=== PATIENT | female | born 1945 | race Caucasian/White ===

== ENCOUNTER 2017-04-26 14:53 | Emergency (ER) | payer MEDICARE ==
[~2017-04-26] VITALS: Ht 170.2 cm; Wt 95.3 kg
[~2017-04-26 14:53] MED LIST: ADULT ASPIRIN81 MG; AMLODIPINE BESY10 MG PO; AMLODIPINE BESYL5 MG PO; ANTIVERT25 MG; ASPIR 8181 MG PO; CRESTOR10 MG PO; DIGOXIN125 MCG PO; LASIX20 MG PO; MIRALAX17 GM PO; NEURONTIN100 MG PO; SENOKOT-S TABL1 EACH PO; SIMVASTATIN20 MG PO; TOPROL XL25 MG PO; TYLENOL EXTRA500 MG PO; WARFARIN SODIUM3 MG PO; WARFARIN SODIUM5 MG PO; Z.0.CRESTOR10 MG; Z.0.HYDROCHLOROTHIA2; Z.0.LISINOPRIL10 MG; Z.0.METOPROLOL SUCC2
--- OUTSIDE RECORDS SUMMARY | 2017-04-26 14:55 | XMS REPORT | Clinical Summary ---
Author Author [facility] Address Unknown Phone Unavailable Care Team Providers Care Bath Attendant Name Role Phone Ami Dumont MD PCP Allergies Active Allergy Reactions Severity Noted Date Comments Hydralazine Hives 02/02/2017 Ibuprofen Hives 02/02/2017 Current Medications Prescription Sig. Disp. Refills Start End Date Status Date gabapentin (NEURONTIN) Take 100 mg by mouth 2 Active 100 mg capsule (two) times a day. QUEtiapine (SEROquel) 25 Take 12.5 mg by mouth Active MG tablet nightly. midodrine (PROAMATINE) 5 Take 5 mg by mouth 3 Active MG tablet (three) times a day as needed. docusate sodium (COLACE) Take 100 mg by mouth 2 Active 100 MG capsule (two) times a day as needed for constipation. atorvastatin (LIPITOR) 40 Take 40 mg by mouth Active MG tablet daily. warfarin (COUMADIN) 6 MG Take 6 mg by mouth daily. Active tablet Wednesday and warfarin (COUMADIN) 5 MG Take 5 mg by mouth daily. Active tablet Every Wed, Wed, Wed, Sat, Sun torsemide (DEMADEX) 20 MG Take 40 mg by mouth Active tablet daily. Active Problems Not on file Encounters Date Type Specialty Care Team Description 02/02/2017 Hospital Radiology Onur Kaufman Chronic kidney disease, Encounter Celio Albarado MD stage III (moderate); Fitting and adjustment of vascular catheter 02/02/2017 Ancillary Access Onur Kaufman Chronic kidney disease, Orders Celio Albarado MD stage III (moderate); Fitting and adjustment of vascular catheter 01/29/2017 Telephone Radiology Mao Bhagat 01/28/2017 Transcribe Access Onur Kaufman Chronic kidney disease , Carmen Pickens Jr., MD stage III (moderate) (Primary Dx); Fitting and adjustment of vascular catheter after 04/25/2016 Family History Medical History Relation Name Comments Diabetes Brother Heart attack Brother Heart attack Father Cancer Sister Diabetes Sister Relation Name Status Comments Brother Father Sister Social History Tobacco Use Types Packs/Day Years Used Date Never Smoker Smokeless Tobacco: Never Used Alcohol Use Drinks/Week oz/Week Comments No Sex Assigned at Date Recorded Not on file Last Filed Vital Signs Vital Sign Reading Time Taken Blood Pressure 138/68 02/02/2017 10:17 AM LABORATORY TECHNICAL SPECIALIST Pulse 100 02/02/2017 10:21 AM LABORATORY TECHNICAL SPECIALIST Temperature 36.3 C (97.3 F) 02/02/2017 10:21 AM LABORATORY TECHNICAL SPECIALIST Respiratory Rate 17 02/02/2017 9:32 AM LABORATORY TECHNICAL SPECIALIST Oxygen Saturation 94% 02/02/2017 10:21 AM LABORATORY TECHNICAL SPECIALIST Inhaled Oxygen - - Concentration Weight 96.6 kg (213 lb) 02/02/2017 7:29 AM LABORATORY TECHNICAL SPECIALIST Height 167.6 cm (5' 6") 02/02/2017 7:29 AM LABORATORY TECHNICAL SPECIALIST Body Mass Index 34.38 02/02/2017 7:29 AM LABORATORY TECHNICAL SPECIALIST Plan of Treatment Health Maintenance Due Date Last Done Comments COLONOSCOPY 1996 ZOSTER VACCINE 2006 PNEUMOCOCCAL 06/07/2011 POLYSACCHARIDE VACCINE AGE 65 AND OVER PNEUMOCOCCAL-13 06/07/2011 INFLUENZA VACCINE 09/08/2016 MAMMOGRAM 10/22/2017 10/23/2015, 10/01/2015, 09/27/2014, Additional history exists Results * IR Endovascular Consult (02/02/2017 9:44 AM) Specimen Performing Laboratory [facility] [address] [place] [address] Narrative Examination:IR ENDOVASCULAR CONSULT Clinical history:"N18.3 Chronic kidney diseasestage 3 (moderate), Z45.2 Encounter for adjustment and management of vascular access device, N18.3 Z45.2" Comparison:There are no prior studies for comparison. Anesthesia:Lidocaine solution was injected into the involved tissues. Conscious sedation: Conscious sedation medications were not administered. Technique:The patient was prepared using sterile technique after signed, informed consent was obtained. Maximal sterile barrier technique was implemented.The suture securing the catheter to the skin surface was severed.The cuff of the indwelling left internal jugular tunneled central venous catheter was bluntly dissected from the soft tissues.The catheter was then removed without incident. Hemostasis was established at the venotomy/catheter exit site by applying direct pressure. Estimated blood loss:Less than 1 cc. Complications:None. Specimens removed:Not applicable. Assistants:None. IMPRESSION:The patient's indwelling left internal jugular tunneled central venous catheter was removed without incident as described above. Thank you for allowing us to participate in the care of your patient. [id number] Procedure Note Hm Interface, Radiology Results Incoming - 02/02/2017 11:38 AM LABORATORY TECHNICAL SPECIALIST Examination: IR ENDOVASCULAR CONSULT Clinical history: "N18.3 Chronic kidney disease stage 3 (moderate), Z45.2 Encounter for adjustment and management of vascular access device, N18.3 Z45.2 " Comparison: There are no prior studies for comparison. Anesthesia: Lidocaine solution was injected into the involved tissues. Conscious sedation: Conscious sedation medications were not administered. Technique: The patient was prepared using sterile technique after signed, informed consent was obtained. Maximal sterile barrier technique was implemented. The suture securing the catheter to the skin surface was severed. The cuff of the indwelling left internal jugular tunneled central venous catheter was bluntly dissected from the soft tissues. The catheter was then removed without incident. Hemostasis was established at the venotomy/catheter exit site by applying direct pressure. Estimated blood loss: Less than 1 cc. Complications: None. Specimens removed: Not applicable. Assistants: None. IMPRESSION: The patient's indwelling left internal jugular tunneled central venous catheter was removed without incident as described above. Thank you for allowing us to participate in the care of your patient. [id number] * Estimated GFR (02/02/2017 8:06 AM) Component Value Ref Range GFR Non Af Amer 44 (A) mL/min/1.73 m2 GFR Af Amer 54 (A) mL/min/1.73 m2 Comment: Chronic kidney disease: <60 mL/min/1.73m2 Kidney failure: <15 mL/min/1.73m2 The estimated GFR is calculated from the IDMS-traceable Modification of Diet in Renal Disease Equation. The accuracy of the calculation is poor when the creatinine is normal. Calculated values >90 mL/min/1.73m2 are not reported. This equation has not been validated in children (<18 years), women, the elderly (>70 years), or ethnic groups other than Caucasians and Americans. Specimen Performing Laboratory Plasma specimen [facility] DEPARTMENT OF PATHOLOGY AND GENOMIC MEDICINE [address] [place] [address] * Partial thromboplastin time, activated (02/02/2017 8:06 AM) Component Value Ref Range PTT 26.8 23.0 - 36.0 sec Comment: PTT therapeutic range for unfractionated heparin is 61.0-112.0 seconds which corresponds to Anti-Xa 0.3-0.7 U/ml. Note: Change in Panic Value The PTT Panic Value is changing from 110 sec. to 100 sec. due to new instrumentation and reagents. Correlation studies have been performed to validate this result. Specimen Performing Laboratory Blood [facility] DEPARTMENT OF PATHOLOGY AND GENOMIC MEDICINE [address] [place] [address] * Prothrombin time with INR (02/02/2017 8:06 AM) Component Value Ref Range Prothrombin time 12.6 12.0 - 15.0 sec INR 0.93 0.92 - 1.12 Comment: For patients on anticoagulant therapy, reference ranges below: Indication: INR Value Treatment of Venous Thrombosis, 2.0-3.0 pulmonary emboli, or prophylaxis of a venous thrombosis, or systemic emboli. High dose, high risk patients 3.0-4.5 with mechanical valves. NOTE: INR values over 3.0 are sometimes associated with gastrointestinal hemorrhage, especially values over 4.0. Specimen Performing Laboratory Blood [facility] DEPARTMENT OF PATHOLOGY AND GENOMIC MEDICINE [address] [place] [address] * CBC with platelet and differential (02/02/2017 8:06 AM) Component Value Ref Range WBC 6.6 4.2 - 11.0 k/uL RBC 4.30 4.04 - 5.86 m/uL HGB 12.6 11.5 - 15.3 g/dL HCT 40.6 34.0 - 45.0 % MCV 94.4 80.0 - 98.0 fL MCH 29.3 27.0 - 34.0 pg MCHC 31.0 (L) 31.5 - 36.5 g/dL RDW - SD 50.8 37.0 - 51.0 fL MPV 9.7 7.4 - 10.4 fL Platelet count 213 150 - 400 k/uL Nucleated RBC 0.00 /100 WBC Neutrophils 56.7 36.0 - 66.0 % Lymphocytes 32.8 24.0 - 44.0 % Monocytes 5.9 0.0 - 6.0 % Eosinophils 3.2 0.0 - 6.0 % Basophils 0.9 0.0 - 1.2 % Immature granulocytes 0.5 0.0 - 1.0 % Specimen Performing Laboratory Blood [facility] DEPARTMENT OF PATHOLOGY AND GENOMIC MEDICINE [address] [place] [address] * Basic metabolic panel (02/02/2017 8:06 AM) Component Value Ref Range Sodium 140 135 - 150 mEq/L Potassium 3.8 3.5 - 5.0 mEq/L Chloride 101 100 - 109 mEq/L CO2 30 24 - 32 mmol/L Anion gap 9 7 - 15 mEq/L Comment: Starting from May , anion gap calculation no longer incorporates potassium. Please note the change. BUN 19 (H) 7 - 18 mg/dL Creatinine 1.2 0.8 - 1.5 mg/dL Glucose 109 (H) 65 - 100 mg/dL Calcium 9.3 8.6 - 10.7 mg/dL Specimen Performing Laboratory Plasma specimen [facility] DEPARTMENT OF PATHOLOGY AND GENOMIC MEDICINE [address] [place] [address] after 04/25/2016 Insurance Payer Benefit Subscriber ID Type Phone Address Plan / Group AETNA AETNA xxxxxxxx HMO HMO,POS,EP O, MC/EC AETNA MEDICARE AETNA xxxxxxxx HMO MEDICARE HMO/PPO [facility]
[2017-04-26 16:57] LABS: BASOPHILS # (AUTO) 0.1 (0.0-0.1); BASOPHILS % 0.5 % (0.0-1.0); EOSINOPHILS # (AUTO) 0.2 (0.0-0.4); EOSINOPHILS % 2.2 % (0.0-6.0); HEMATOCRIT 35.3 % (34.2-44.1); HEMOGLOBIN 11.9 g/dL (12.0-16.0); LYMPHOCYTES # (AUTO) 2.9 (1.0-3.2); LYMPHOCYTES % 30.1 % (18.0-39.1); MEAN CORPUSCULAR HEMOGLOBIN 31.3 pg (28-32); MEAN CORPUSCULAR HGB CONC 33.7 g/dL (31-35); MEAN CORPUSCULAR VOLUME 92.9 fL (81-99); MONOCYTES # (AUTO) 0.6 (0.2-0.8); MONOCYTES % 5.9 % (4.4-11.3); NEUTROPHILS # (AUTO) 5.9 (2.1-6.9); NEUTROPHILS % 61.1 % (38.7-80.0); PLATELET COUNT 261 x10e3/uL (140-360)
[2017-04-26 17:05] LABS: INR 2.64; PROTHROMBIN TIME 26.5 seconds (11.9-14.5)
[2017-04-26 17:06] LABS: PARTIAL THROMBOPLASTIN TIME 41.4 seconds (23.8-35.5)
[2017-04-26 17:14] LABS: ALBUMIN 3.9 g/dL (3.5-5.0); ANION GAP 15.5 mmol/L (8-16); CREATININE, SERUM 1.31 mg/dL (0.57-1.11); POTASSIUM 4.5 mmol/L (3.5-5.1)
[2017-04-26 17:23] LABS: CREATINE KINASE MB 0.6 ng/mL (0-5.0)
[2017-04-26 17:41] LABS: BILIRUBIN,URINE NEGATIVE (NEGATIVE); CLARITY,URINE CLEAR (CLEAR); COLOR,URINE YELLOW (YELLOW); KETONES,URINE NEGATIVE (NEGATIVE); LEUKOCYTE ESTERASE ,URINE TRACE (NEGATIVE); NITRITE,URINE NEGATIVE (NEGATIVE); PROTEIN,URINE DIPSTICK NEGATIVE (NEGATIVE); URINE UROBILINOGEN 0.2 mg/dL (0.2 - 1)
[2017-04-26 17:53] LABS: BACTERIA,URINE RARE /HPF; EPITHELIAL CELLS,URINE FEW /LPF; MUCUS,URINE RARE (RARE); RBC,URINE 0-5 /HPF (0-5)
[2017-04-26] MEDS ORDERED: DIATRIZOATE MEGL/DIATRIZOA SOD 30 ML BTL PO ONE (19:31)
[2017-04-26] MEDS ORDERED: GABAPENTIN100 MG PO (20:47)
[2017-04-26] MEDS ORDERED: VITAMIN D31000 UNI1 PO (20:47)
[2017-04-26] MEDS ORDERED: ATORVASTATIN CA20 MG PO (20:47)
[2017-04-26] MEDS ORDERED: WARFARIN SODIUM3 MG PO (20:48)
[2017-04-26] MEDS ORDERED: METOPROLOL TART25 MG PO (20:49)
[2017-04-26] MEDS ORDERED: TORSEMIDE10 MG PO (20:50)
[2017-04-26] MEDS ORDERED: QUETIAPINE FUMA25 MG PO (20:50)
[2017-04-26] MEDS ORDERED: BISACODYL5 MG PO (20:51)
--- NOTE | 2017-04-26 21:03 | Diagnostic Imaging Report ---
EXAM: CT Abdomen and Pelvis WITHOUT contrast INDICATION: COMPARISON: 08/25/2016 CT TECHNIQUE: Abdomen and Pelvis was scanned utilizing a multidetector helical scanner without the use of IV contrast. Coronal and sagittal reformations were obtained. IV CONTRAST: None COMPLICATIONS: None RADIATION DOSE: Total DLP: 876 mGy*cm Estimated effective dose: (DLP x 0.015 x size factor) mSv CTDIvol has been reviewed. It is below the limits set by the Radiation Protocol Committee (RPC). FINDINGS: Abdomen: Lung Bases: Bronchial wall thickening and scattered nodular densities in the lung bases, nonspecific given respiratory motion. Vascular calcifications, sternotomy changes, mitral annular calcifications, and probable aortic valve postsurgical changes partially visualized. Solid Organs: Possible small adenoma right adrenal gland. Otherwise, nonenhanced images of liver, adrenals, spleen, and pancreas are unremarkable. No hydronephrosis or renal calculi present. No ureteral calculi. Upper GI Tract: Small hiatal hernia. No small bowel obstructive changes. Vascularity: Moderate aortic vascular calcifications. No aneurysm. Lymph Nodes: No suspicious mesenteric or aortocaval adenopathy. Other: None. Pelvis: Bladder: Unremarkable. Other: Uterus absent. Colon: Scattered diverticula with no CT evidence of diverticulitis. Moderate stool, particularly ascending. No inflammatory changes. Bones: Degenerative changes spine. IMPRESSION: 1. No hydronephrosis, renal, or ureteral calculi. 2. Diverticulosis. 3. Moderate colonic stool. 4. Small right adrenal adenoma. 5. Nodularity in the lung bases, poorly evaluated due to respiratory motion. Nonemergent outpatient dedicated chest CT recommended. Signed by: Dr. Kevin Robins MD on 04/26/2017 8:59 PM
[2017-04-26 21:39] VITALS: BP 174/80
== END 2017-04-26 21:50 | disposition home or self-care (01) ==
LOC: ER 14:53
DX: R10.11 Right upper quadrant pain (principal); R10.31 Right lower quadrant pain; K59.00 Constipation, unspecified
CPT/HCPCS: 36415; 74176; 80053; 81001; 82150; 82550; 82553; 83690; 83880; 84484; 85025; 85610; 85730; 93005; 99283

== ENCOUNTER → 2018-12-09 | Day surgery (SDC) | payer MEDICARE ==
[2018-12-08 11:27] LABS: BASOPHILS # (AUTO) 0.1 (0.0-0.1); BASOPHILS % 0.7 % (0.0-1.0); EOSINOPHILS # (AUTO) 0.2 (0.0-0.4); EOSINOPHILS % 2.6 % (0.0-6.0); HEMATOCRIT 39.8 % (34.2-44.1); HEMOGLOBIN 12.8 g/dL (12.0-16.0); LYMPHOCYTES # (AUTO) 2.4 (1.0-3.2); LYMPHOCYTES % 27.2 % (18.0-39.1); MEAN CORPUSCULAR HEMOGLOBIN 30.3 pg (28-32); MEAN CORPUSCULAR HGB CONC 32.2 g/dL (31-35); MEAN CORPUSCULAR VOLUME 94.3 fL (81-99); MONOCYTES # (AUTO) 0.5 (0.2-0.8); MONOCYTES % 5.2 % (4.4-11.3); NEUTROPHILS # (AUTO) 5.7 (2.1-6.9); PLATELET COUNT 281 x10e3/uL (140-360); RED BLOOD COUNT 4.22 x10e6/uL (3.6-5.1); RED CELL DISTRIBUTION WIDTH 14.6 % (11.7-14.4)
[2018-12-08 11:45] LABS: ALBUMIN 3.9 g/dL (3.5-5.0); ANION GAP 19.4 mmol/L (8-16); CALCIUM 9.8 mg/dL (8.4-10.2); CREATININE, SERUM 1.31 mg/dL (0.57-1.11); POTASSIUM 4.4 mmol/L (3.5-5.1)
[~2018-12-09] VITALS: Ht 170.2 cm; Wt 105.7 kg
[2018-12-09] VITALS (7 sets, daily range): BP systolic 110–129; BP diastolic 55–79
[~2018-12-09] MED LIST changes: +ALPRAZOLAM 0.5 MG TAB ONE; +ATORVASTATIN CA20 MG PO; +BISACODYL5 MG PO; +DIPHENHYDRAMINE HCL 25 MG CAP ONE; +FENTANYL CITRATE/PF 100MCG/2 ML INJ ONE; +GABAPENTIN100 MG PO; +HEPARIN SOD/SOD CHLORIDE 2,000 ML ONE; +IOPAMIDOL 370 MG/ML 200 ML INFUS..BTL INJ ONE; +LIDOCAINE HCL 2% LOCAL 20 ML VIAL ONE; +METOPROLOL SUCC25 MG PO; +METOPROLOL TART25 MG PO; +METOPROLOL TART50 MG PO; +MIDAZOLAM HCL 2 MG/2 ML VIAL ONE; +QUETIAPINE FUMA25 MG PO; +SODIUM CHLORIDE 0.9% 1000ML 1,000 ML ONE; +TORSEMIDE10 MG PO; +VERAPAMIL HCL 2.5 MG/ML 2 ML VIAL ONE; +VITAMIN D31000 UNI1 PO
--- OUTSIDE RECORDS SUMMARY | 2018-12-09 09:32 | XMS REPORT ---
Author Author [facility] Address Unknown Phone Unavailable Care Team Providers Care Pipe Machine Operator Name Role Phone ANDREASTOÑOMonique Unavailable Unavailable Problems This patient has no known problems. Allergies, Adverse Reactions, Alerts This patient has no known allergies or adverse reactions. Medications This patient has no known medications. Results Test Description Test Time Test Comments Text Results Atomic Results Result Comments CT ABDOMEN/PELVIS WO [place] [address] Patient Name: ROHAN ERAZO MR #: [id number] : 1945 Age/Sex: 71/F Req #: [id number] Adm Physician: Ordered by: MAXIMILIANO KIRK MAILER APPRENTICE Report #: [id number] Location: ER Room/Bed: Procedure: [id number] CT/CT ABDOMEN/PELVIS WO Exam Date: 04/26/17 Exam Time: 1999 REPORT STATUS: Signed EXAM: CT Abdomen and Pelvis WITHOUT contrast INDICATION: COMPARISON: 08/25/2016 CT TECHNIQUE: Abdomen and Pelvis was scanned utilizing a multidetector helical scanner without the use of IV contrast. Coronal and sagittal reformations were obtained. IV CONTRAST: None COMPLICATIONS: None RADIATION DOSE: Total DLP: 876 mGy*cm Estimated effective dose: (DLP x 0.015 x size factor) mSv CTDIvol has been reviewed. It is below the limits set by the Radiation Protocol Committee (RPC). FINDINGS: Abdomen: Lung Bases: Bronchial wall thickening and scattered nodular densities in the lung bases, nonspecific given respiratory motion. Vascular calcifications, sternotomy changes, mitral annular calcifications, and probable aortic valve postsurgical changes partially visualized. Solid Organs: Possible small adenoma right adrenal gland. Otherwise, nonenhanced images of liver, adrenals, spleen, and pancreas are unremarkable. No hydronephrosis or renal calculi present. No ureteral calculi. Upper GI Tract: Small hiatal hernia. No small bowel obstructive changes. Vascularity: Moderate aortic vascular calcifications. No aneurysm. Lymph Nodes: No suspicious mesenteric or aortocaval adenopathy. Other: None. Pelvis: Bladder: Unremarkable. Other: Uterus absent. Colon: Scattered diverticula with no CT evidence of diverticulitis. Moderate stool, particularly ascending. No inflammatory changes. Bones: Degenerative changes spine. IMPRESSION: 1. No hydronephrosis, renal, or ureteral calculi. 2. Diverticulosis. 3. Moderate colonic stool. 4. Small right adrenal adenoma. 5. Nodularity in the lung bases, poorly evaluated due to respiratory motion. Nonemergent outpatient dedicated chest CT recommended. Signed by: Dr. Zena Liang MD on 04/26/2017 8:59 PM Dictated By: ZENA LIANG MD 58 Transcribed By: INDIRA on 04/26/172058 COPY TO: MAXIMILIANO KIRK NP
[2018-12-09 10:50] LABS: INR 1.33; PROTHROMBIN TIME 17.1 seconds (11.9-14.5)
--- NOTE | 2018-12-09 11:15 | NUR ---
pt in CCL 10, prepped for procedure. Alert oriented and appropriate, PERRLA, respirations even and unlabored to room air. Pulses x4 extremities equal and palpable. + allans and neurovascular function to right hand. Cap fill brisk < 3 sec. Skin warm and dry integrity appears intact in general. IV 20g to right AC x1 started and presents healthy w/o s/s of infiltration or complaint. NS 0.9% started at 100ml/hr per dial flow. Abdomen soft and supple. pt offered toileting, denies need to urinate or defecate. Personal affects with patient. Family at bedside. Pt and family verbalizes understanding of POC. Pre-Op Meds benadryl and xanax given. bed low and locked, side rails up x2 and call light at side. -cgf
--- NOTE | 2018-12-09 14:30 | NUR ---
1430 bedside report received from ИРИНА Macias.Identiferx2. Alert oriented and appropriate, PERRLA, respirations even and unlabored to room air. Pulses x4 extremities equal and strong. Pedal pulses PT/DP X4 Cap fill brisk < 3 sec. Rt tr band intact ok to decrease tr band at 1530pm. Skin warm and dry integrity appears IV 20g to rt ac. presents healthy w/o s/s of infiltration or complaint. Abdomen soft and supple. pt offered toileting, denies need to urinate or defecate. No personal affects with patient. Family Erin daughter [phone] Pt and family verbalizes understanding of POC. Currently w/o complaint of pain or need. ds/rn
--- NOTE | 2018-12-09 15:30 | NUR ---
1530 RADIAL Compression removal: Initial Cuff volume 11 cc 1530 -2 cc Removed No hematoma/bleeding noted with normal neurovascular function. 1545 -4 cc Removed No hematoma/ bleeding noted with normal neurovascular function. 1600 -5cc Removed No hematoma/bleeding noted with normal neurovascular function. Air removal completed. Stasis achieved sterile 2x2,Tegaderm, Coban dressing No hematoma, bleeding noted with normal neurovascular function. Wrist splint in place. Pt instructed on POC. Ds/Rn
--- NOTE | 2018-12-09 16:00 | NUR ---
1600 Pt meets DC criteria. Rt radial assessed for s/s of complication and presence of hematoma. Skin warm, dry, no discolor, and pulses present. IV removed from rt ac. Distal tip appears intact. VS WNL. Pt denies pain, sob, or need at this time. Family at bs. Review of discharge paperwork and follow up instructions. verbalized understanding. Pt to wheelchair and transported to front of hospital. Transferred to private vehicle under own strength w/o incident with DC paperwork in hand. - ds/rn
--- NOTE | 2018-12-26 16:28 | Operative Report ---
DATE OF PROCEDURE: 12/09/2018 SURGEON: Sunny Arredondo MD INDICATIONS: Coronary artery disease. DESCRIPTION OF PROCEDURE: Access obtained in the right radial artery. A 5-Icelandic sheath was placed. Coronary angiography demonstrated mild coronary artery disease, 20% to 30% in the proximal mid right coronary artery. Distal right coronary artery, 50% stenosis. Circumflex mid 80% stenosis. Left anterior descending artery, 20% to 30% stenosis. The patient was cleared first. No intervention at this point. Right wrist TR band applied. The patient discharged home the same day. Sunny Arredondo MD KSB/MODL /[id number]
== END | disposition home or self-care (01) ==
LOC: CATH LAB 09:29
PROVIDERS: ATTEND Internal Medicine Interventional Cardiology
DX: I25.118 Atherosclerotic heart disease of native coronary artery with other forms of angina pectoris (principal); I27.20 Pulmonary hypertension, unspecified; Z88.8 Allergy status to other drugs, medicaments and biological substances; Z01.812 Encounter for preprocedural laboratory examination; Z79.01 Long term (current) use of anticoagulants; Z95.0 Presence of cardiac pacemaker; Z68.36 Body mass index [BMI] 36.0-36.9, adult; Z86.73 Personal history of transient ischemic attack (TIA), and cerebral infarction without residual deficits; Z95.2 Presence of prosthetic heart valve
CPT/HCPCS: 36415 ×2; 80053; 85025; 85610; 93454; C1769; C1887; J2001; J2250; J3010; J7030; 99152; Q9967

== ENCOUNTER 2019-01-30 09:50 | Inpatient (IN) | payer MEDICARE ==
[~2019-01-30] VITALS: Ht 170.2 cm; Wt 103.1 kg
[~2019-01-30 09:50] MED LIST changes: -ALPRAZOLAM 0.5 MG TAB ONE; -DIPHENHYDRAMINE HCL 25 MG CAP ONE; -FENTANYL CITRATE/PF 100MCG/2 ML INJ ONE; -HEPARIN SOD/SOD CHLORIDE 2,000 ML ONE; -IOPAMIDOL 370 MG/ML 200 ML INFUS..BTL INJ ONE; -LIDOCAINE HCL 2% LOCAL 20 ML VIAL ONE; -MIDAZOLAM HCL 2 MG/2 ML VIAL ONE; -SODIUM CHLORIDE 0.9% 1000ML 1,000 ML ONE; +TRAZODONE HCL50 MG PO; -VERAPAMIL HCL 2.5 MG/ML 2 ML VIAL ONE
[2019-01-30] MEDS ORDERED: OCTREOTIDE ACETATE 500 MCG in SODIUM CHLORIDE 0.9% 250ML 250 ML IV STA (10:18)
[2019-01-30 10:23] LABS: BASOPHILS % 0.5 % (0.0-1.0); EOSINOPHILS # (AUTO) 0.1 (0.0-0.4); EOSINOPHILS % 1.7 % (0.0-6.0); HEMATOCRIT 36.6 % (34.2-44.1); HEMOGLOBIN 11.8 g/dL (12.0-16.0); LYMPHOCYTES # (AUTO) 2.3 (1.0-3.2); LYMPHOCYTES % 28.2 % (18.0-39.1); MEAN CORPUSCULAR HEMOGLOBIN 30.2 pg (28-32); MEAN CORPUSCULAR HGB CONC 32.2 g/dL (31-35); MEAN CORPUSCULAR VOLUME 93.6 fL (81-99); MONOCYTES # (AUTO) 0.4 (0.2-0.8); MONOCYTES % 5.2 % (4.4-11.3); NEUTROPHILS # (AUTO) 5.2 (2.1-6.9); NEUTROPHILS % 63.9 % (38.7-80.0); PLATELET COUNT 298 x10e3/uL (140-360); RED BLOOD COUNT 3.91 x10e6/uL (3.6-5.1); RED CELL DISTRIBUTION WIDTH 14.9 % (11.7-14.4)
[2019-01-30 10:35] LABS: INR 1.34; PROTHROMBIN TIME 17.2 seconds (11.9-14.5)
[2019-01-30 10:36] LABS: PARTIAL THROMBOPLASTIN TIME 33.1 seconds (23.8-35.5)
[2019-01-30 10:42] LABS: ALANINE AMINOTRANSFERASE 16 IU/L (0-55); ALKALINE PHOSPHATASE 138 IU/L (40-150); ANION GAP 16.8 mmol/L (8-16); BLOOD UREA NITROGEN 25 mg/dL (7-26); BUN/CREATININE RATIO 17 (6-25); CARBON DIOXIDE 28 mmol/L (22-29); CHLORIDE 96 mmol/L (98-107); CREATINE KINASE 75 IU/L (29-168); CREATININE, SERUM 1.51 mg/dL (0.57-1.11); EST GLOMERULAR FILTRATION RATE 34 ML/MIN (60-); GLUCOSE 114 mg/dL (74-118); POTASSIUM 3.8 mmol/L (3.5-5.1); SODIUM 137 mmol/L (136-145)
[2019-01-30 11:03] LABS: BILIRUBIN,URINE NEGATIVE (NEGATIVE); CLARITY,URINE CLEAR (CLEAR); KETONES,URINE NEGATIVE (NEGATIVE); LEUKOCYTE ESTERASE ,URINE NEGATIVE (NEGATIVE); NITRITE,URINE NEGATIVE (NEGATIVE); PROTEIN,URINE DIPSTICK NEGATIVE (NEGATIVE); URINE UROBILINOGEN 0.2 mg/dL (0.2 - 1)
[2019-01-30 11:04] LABS: COLOR,URINE STRAW (YELLOW)
[2019-01-30] MEDS ORDERED: SODIUM CHLORIDE 0.9% 1000ML 1,000 ML IV STA (11:28)
[2019-01-30 11:30] LABS: WBC,URINE (MAN) 0-5 /HPF (0-5)
[2019-01-30 11:31] LABS: BACTERIA,URINE FEW /HPF; EPITHELIAL CELLS,URINE FEW /LPF; RBC,URINE 0-5 /HPF (0-5)
[2019-01-30] MEDS ORDERED: ONDANSETRON HCL INJ 2MG/ML 2ML 2 MG/ML VIAL IV PRN (12:45)
--- NOTE | 2019-01-30 13:47 | Diagnostic Imaging Report ---
EXAM: CT Abdomen and Pelvis WITH intravenous contrast INDICATION: Melena COMPARISON: CT abdomen and pelvis of 04/26/2017 TECHNIQUE: Abdomen and pelvis were scanned utilizing a multidetector helical scanner from the lung base to the pubic symphysis after administration of IV contrast. Coronal and sagittal reformations were obtained. Routine protocol was performed. Scan was performed during portal venous phase. IV CONTRAST: 100mL of Isovue 370 ORAL CONTRAST: Water RADIATION DOSE: Total DLP: 835.1 mGy*cm Dose modulation, iterative reconstruction, and/or weight based adjustment of the mA/kV was utilized to reduce the radiation dose to as low as reasonably achievable. FINDINGS: LOWER THORAX: Pacer leads partially visualized. Coronary artery atherosclerotic calcifications. Unchanged right lateral pleural thickening. Mild bronchial wall thickening. HEPATOBILIARY: No focal liver lesion. No biliary ductal dilation. Absent gallbladder. SPLEEN: No splenomegaly. PANCREAS: No focal masses or ductal dilatation. ADRENALS: 10 mm right adrenal nodule (30HU) KIDNEYS/URETERS: No hydronephrosis, stones, or solid mass lesions. PELVIC ORGANS/BLADDER: Status post hysterectomy. PERITONEUM / RETROPERITONEUM: No free air or fluid. LYMPH NODES: No lymphadenopathy. VESSELS: Scattered atherosclerotic calcifications of the nonaneurysmal abdominal aorta and major branches. GI TRACT: Diverticulosis without CT evidence of diverticulitis. No abnormal bowel thickening. No bowel obstruction. BONES AND SOFT TISSUES: Mild multilevel degenerative changes. Sternotomy wires partially visualized. IMPRESSION: No acute findings in the abdomen or pelvis. Unchanged 10 mm right adrenal nodule, likely a benign adenoma. No imaging follow-up of this lesion is necessary. Signed by: Asher Godoy MD on 01/30/2019 1:43 PM
[2019-01-30] MEDS ORDERED: PANTOPRAZOLE 40 MG 10ML VIAL IV ONE (13:55)
[2019-01-30] MEDS ORDERED: SODIUM CHLORIDE 0.9% 50ML 50 ML ONE (14:50)
[2019-01-30] MEDS ORDERED: IOPAMIDOL 370 MG/ML 200 ML INFUS..BTL INJ ONE (14:50)
--- NOTE | 2019-01-30 16:10 | NUR ---
PT RECEIVED FROM ER. AAOX4. EDUCATED PT ABOUT FALL PRECAUTIONS. CALL LIGHT WITH IN EASY REACH. INSTRUCTED PT TO USE CALL LIGHT FOR ALL THE NEEDS. PT VERBALIZED UNDERSTANDING. BED ALARM IS ON. BED IS LOW AND LOCKED. SIDE RAILS X2. PT FAMILY AT BEDSIDE. SANDOSTATIN DRIP RUNNING AT 12.5 ML/HR WHILE RECEIVING THE PT. PT DENIES NEEDS AT THIS TIME.
[2019-01-30 16:20] VITALS: BP 163/76
[2019-01-30 16:53] VITALS: BP 136/76
[2019-01-30 17:00] VITALS: BP 136/76
--- NOTE | 2019-01-30 17:10 | NUR ---
CONSULTS DR. Franklin GERARDO AND DR. ALVAREZ CALLED
--- NOTE | 2019-01-30 17:29 | History and Physical ---
CHIEF COMPLAINT: Black dark tarry stool since last 3 to 4 days. HISTORY OF PRESENT MEDICAL ILLNESS: A 73-year-old pleasant white female with past medical history of multiple medical problems, was admitted at [facility] with above complaint this afternoon. The patient was seen in my office sole scraper with above complaints. As per the patient, she had PTCA with stent done for CAD by parts person, Dr. Arredondo about one week back. The patient was already on aspirin and warfarin, and was added Plavix. Now, the patient was taking Plavix, warfarin, and aspirin. As per the patient since last 3 to 4 days, she started noticing black dark tarry stools 3 to 4 times a day of watery and hence, the patient came to my office this morning. Also, the patient complained of feeling generalized fatigue and weakness. The patient was sent to ER to rule out GI bleed. At present, the patient lying comfortably in bed, in no apparent distress. No chest pain. No shortness of breath. No nausea, vomiting, or diarrhea. No abdominal pain. No loss of consciousness. No palpitations. No headaches. No hematemesis. No hematuria. No dysuria. No fever. No cough. No witnessed seizures. PAST MEDICAL HISTORY: 1. Aortic stenosis, status post mechanical valve replaced, October 2016, status post permanent pacemaker. 2. Carotid stenosis, status post right endarterectomy and left endarterectomy. 3. Atrial fibrillation. 4. Thyroid nodules. 5. Pulmonary nodules. 6. Hyperlipidemia. 7. Renal insufficiency. PAST SURGICAL HISTORY: 1. Aortic valve replacement with mechanical valve in October 2016. 2. Right carotid endarterectomy, September 06, 2014. 3. Left carotid endarterectomy, May 2016. 4. AVR redo tissue to mechanical in October 2016 and mitral valve replaced tissue wall. 5. Gallbladder surgery. 6. Appendectomy. 7. CAD, status post stent. ALLERGIES: ALEVE, IBUPROFEN, HYDRALAZINE, HYDROCHLOROTHIAZIDE. FAMILY HISTORY: Noncontributory. SOCIAL HISTORY: No smoking. No alcohol. No illicit drug use. REVIEW OF SYSTEMS: As per HPI. PHYSICAL EXAMINATION: GENERAL: The patient is alert and oriented x3, in no apparent distress, lying in bed. VITAL SIGNS: Temperature is 98, pulse is 78 per minute, respiratory rate is 16 per minute, and blood pressure is 148/80. SKIN: No cyanosis. No icterus. No pallor. HEENT: Normocephalic and atraumatic. PERRLA plus. NECK: Soft, supple. No JVD. No carotid bruit. No lymphadenopathy. LUNGS: Air entry bilaterally equal. HEART: S1, S2 present. No murmur, gallop, or rub. ABDOMEN: Soft and nontender. Bowel sounds plus. CLINICAL FIELD SPECIALIST: Alert and oriented x3. No focal deficits. EXTREMITIES: No cyanosis. No clubbing. No edema. Peripheral pulses present. No calf pain. LABORATORY DATA: Labs noted. CT abdomen pelvis noted. ASSESSMENT: 1. Gastrointestinal bleed. 2. History of recent coronary artery disease, PTCA stent. 3. Multiple cardiac comorbidities. PLAN: Admit the patient to telemedicine floor. Serial H and H. GI consultation, Dr. Martinez Gardner. Cardiology consultation, Dr. Arredondo. Hold aspirin and warfarin. Further care and treatment as per clinical course of the patient in the hospital. Discussed with the patient in detail. MD LEANN Mcnulty/MODL /[id number]
[2019-01-30] MEDS ORDERED: ASPIRIN81 MG (17:48)
[2019-01-30] MEDS ORDERED: CLOPIDOGREL75 MG PO (17:48)
[2019-01-30 18:00] VITALS: BP 136/76
--- NOTE | 2019-01-30 18:00 | NUR ---
DR. MATHEW AT BEDSIDE.
--- NOTE | 2019-01-30 19:00 | NUR ---
BEDSIDE SHIFT REPORT GIVEN TO THE AIR TOOL OPERATOR RN. PT DENIED FURTHER NEEDS. DAUGHTER AT BEDSIDE.
--- NOTE | 2019-01-30 19:09 | Consultation ---
DATE OF CONSULTATION: 01/30/2019 Cardiology Consultation REASON FOR CONSULTATION: GI bleed. HISTORY OF PRESENT ILLNESS: This is a 73-year-old woman with a history of coronary disease status post recent stenting to the left circumflex, aortic and mitral valve replacement, carotid endarterectomy, atrial fibrillation, hypertension, and hyperlipidemia, who presented to the emergency department with weakness, fatigue, and black tarry stool. The patient was admitted for GI bleed and started on octreotide. The patient has recently been on triple therapy with aspirin, clopidogrel, and warfarin. REVIEW OF SYSTEMS: A 12-point review of system was conducted and is negative except as above in the HPI. PAST MEDICAL HISTORY: As stated above. PAST SURGICAL HISTORY: As stated above. PAST FAMILY HISTORY: Noncontributory. SOCIAL HISTORY: No illicit drug, alcohol, or tobacco use. ALLERGIES: NO DRUG ALLERGIES. MEDICATIONS: See medication reconciliation form. PHYSICAL EXAMINATION: VITAL SIGNS: Temperature is 98.2, heart rate is 83, respirations are 20, blood pressure is 136/76, and oxygen saturation 95% on room air. GENERAL: Well-appearing, well-built, in no apparent distress. Alert and oriented x3. HEAD: Normocephalic and atraumatic. EYES: The extraocular muscles are intact. Conjunctivae are clear. NECK: No JVD. No bruits. CARDIOVASCULAR: Regular rate and rhythm. [place] mechanical valve sounds. Systolic murmur at left lower sternal border. LUNGS: Clear to auscultation. ABDOMEN: Soft, nontender, and nondistended. EXTREMITIES: No clubbing, cyanosis, or edema. VASCULAR: 2+ pulses. SKIN: Warm, dry, and intact. NEUROLOGIC: No focal deficits noted. Cranial nerves grossly intact. PSYCHIATRIC: Normal mood and affect. LABORATORY DATA: All laboratory data reviewed. INR is 1.3. Creatinine is 1.5. Hemoglobin is 11.8. Abdomen and pelvis CT showed no acute findings. IMPRESSION: 1. Aortic valve replacement. 2. Mitral valve replacement. 3. Coronary artery disease, status post recent percutaneous coronary intervention. 4. Gastrointestinal bleed. 5. Hypertension. 6. Hyperlipidemia. Agree withholding antiplatelets and anticoagulants. She will need to be placed on blood thinners for her mechanical valve and recent stent. GI plans to scope the patient in the morning. We will continue to follow along with you. DO AMARJIT Reyes /[id number] MTDJesus
[2019-01-30 20:00] VITALS: BP 148/66
--- NOTE | 2019-01-30 20:10 | NUR ---
RECEIVED PT IN BED AOX3 .RESPIRATIONS ARE EVEN AND UNLABORED .DENIES PAIN .FAMILY AT THE BEDSIDE .CALL LIGHT WITH IN REACH .CONTINUE TO MONITOR
[2019-01-30] MEDS: TRAZODONE HCL 50 MG TAB PO SCH (23:42)
[2019-01-31] VITALS (10 sets, daily range): BP systolic 104–184; BP diastolic 52–83
[2019-01-31] MEDS ORDERED: PANTOPRAZOLE 40 MG 10ML VIAL IV STA (01:52)
[2019-01-31 05:41] LABS: BASOPHILS % 0.7 % (0.0-1.0); EOSINOPHILS # (AUTO) 0.2 (0.0-0.4); HEMATOCRIT 28.7 % (34.2-44.1); LYMPHOCYTES # (AUTO) 1.5 (1.0-3.2); LYMPHOCYTES % 25.8 % (18.0-39.1); MEAN CORPUSCULAR HGB CONC 31.4 g/dL (31-35); MEAN CORPUSCULAR VOLUME 95.7 fL (81-99); MONOCYTES # (AUTO) 0.5 (0.2-0.8); NEUTROPHILS # (AUTO) 3.5 (2.1-6.9); NEUTROPHILS % 62.1 % (38.7-80.0); PLATELET COUNT 231 x10e3/uL (140-360)
--- NOTE | 2019-01-31 06:01 | NUR ---
PT RESTED DURING THE NIGHT .DENIES PAIN .FAMILY AT THE BEDSIDE . PT HAD 2 TIMES BLACK STOOL CALL LIGHT WITH IN REACH .CONTINUE TO MONITOR
[2019-01-31 06:10] LABS: ALBUMIN 3.2 g/dL (3.5-5.0); ALBUMIN/GLOBULIN RATIO 1.1 (0.8-2.0); ANION GAP 13.3 mmol/L (8-16); CALCIUM 8.6 mg/dL (8.4-10.2); CREATININE, SERUM 1.29 mg/dL (0.57-1.11); POTASSIUM 4.3 mmol/L (3.5-5.1)
--- NOTE | 2019-01-31 07:07 | NUR ---
BEDSIDE REPORT GIVEN TO THE ONCOMING NURSE .PT IS IN STABLE CONDITION
--- NOTE | 2019-01-31 08:04 | NUR ---
Patient alert and responsive, ambulatory, denies any abdl pain, IV line in place, call light within reach, will monitor.
[2019-01-31] MEDS: PANTOPRAZOLE 40 MG 10ML VIAL IV SCH ×2 (09:16→20:00)
--- NOTE | 2019-01-31 11:38 | Progress Note ---
DATE: 01/31/2019 Cardiology Progress Note SUBJECTIVE: The patient reports melanotic stool. No bright red blood per rectum. No hematemesis. OBJECTIVE: VITAL SIGNS: Temperature is 97.0, heart rate is 90, respirations are 20, blood pressure is 142/74, and oxygen saturation 95% on room air. GENERAL: Well-appearing, in no apparent distress. CARDIOVASCULAR: [place] mechanical valve sounds. Normal S1 and S2. Regular rate and rhythm. LUNGS: Clear to auscultation. ABDOMEN: Soft, nontender, and nondistended. EXTREMITIES: No edema. LABORATORY DATA: Hemoglobin 9. Creatinine is 1.29. Telemetry monitoring reveals normal sinus rhythm with ventricular paced complexes. IMPRESSION: 1. Acute gastrointestinal bleed. 2. Aortic valve replacement. 3. Mitral valve replacement. 4. Coronary artery disease, status post recent percutaneous coronary intervention. 5. Hypertension. 6. Hyperlipidemia. 7. Chronic kidney disease. 8. Anemia. RECOMMENDATIONS: Her antiplatelets and anticoagulants have been held at this point in time. She plans to undergo endoscopy today. We will need to ensure safety for re-initiation of her anticoagulant and antiplatelet agents. If okay with Gastroenterology, would like to at least place the patient back on a heparin infusion given the fact that her INR is subtherapeutic with a mechanical valve. DO CHRISTINE Reyes/MODL /[id number] MTDD
[2019-01-31] MEDS ORDERED: SODIUM CHLORIDE 0.9% 500ML 500 ML ONE (13:00)
--- NOTE | 2019-01-31 14:14 | Operative Report ---
DATE OF PROCEDURE: 01/31/2019 SURGEON: Martinez Gardner MD PROCEDURE: EGD with biopsies. INDICATIONS FOR EGD: Anemia, history of melena. MEDICATIONS: The patient was done under MAC, please see anesthesiologist's note. PROCEDURE IN DETAIL: With the patient in the left lateral decubitus position, a flexible fiberoptic Olympus gastroscope was introduced into the esophagus under direct visualization without any difficulty. The esophagus appeared to be within normal limits. The scope was then advanced with ease into the stomach traversing a small hiatal hernia. Mucosa overlying the antrum and the body revealed some diffuse erythema and low-grade to moderate edema, and biopsies were obtained and sent to stain for H. pylori. The pylorus was of normal contour and shape. It was intubated with ease and the scope was advanced all the way to the second portion of the duodenum. The scope was then withdrawn slowly. Mucosa overlying the proximal second portion and duodenal bulb grossly appeared to be within normal limits. The scope was then withdrawn back into the stomach and retroflexed, and mucosa overlying the fundus and the cardia appeared to be within normal limits. The scope was then straightened out, it was subsequently withdrawn, and the patient tolerated the procedure well. IMPRESSION: 1. Normal esophagus. 2. Small hiatal hernia. 3. Gastritis, biopsied, biopsies sent to stain for Helicobacter pylori. PLAN: Follow up histology. Continue current therapy. Findings do not explain the patient's melena. We will need a GI bleed scan. If negative, we will proceed with a colonoscopy. Martinez Gardner MD [facility] [facility] [place] /[id number] cc: MD Ami Dinh MD Benjamin Metz, DO
--- NOTE | 2019-01-31 14:52 | NUR ---
Call to Dr. Gardner for orders regarding fluid status, orders for L/R and to start clear liquids/
[2019-01-31] MEDS: LACTATED RINGER'S 1,000 ML IV SCH (15:07)
[2019-01-31 15:51] LABS: BASOPHILS % 0.5 % (0.0-1.0); EOSINOPHILS # (AUTO) 0.2 (0.0-0.4); EOSINOPHILS % 2.9 % (0.0-6.0); HEMATOCRIT 30.6 % (34.2-44.1); HEMOGLOBIN 9.8 g/dL (12.0-16.0); LYMPHOCYTES # (AUTO) 1.5 (1.0-3.2); LYMPHOCYTES % 25.9 % (18.0-39.1); MEAN CORPUSCULAR HEMOGLOBIN 30.1 pg (28-32); MEAN CORPUSCULAR VOLUME 93.9 fL (81-99); MONOCYTES # (AUTO) 0.3 (0.2-0.8); MONOCYTES % 5.1 % (4.4-11.3); NEUTROPHILS # (AUTO) 3.9 (2.1-6.9); NEUTROPHILS % 65.3 % (38.7-80.0); PLATELET COUNT 251 x10e3/uL (140-360); RED BLOOD COUNT 3.26 x10e6/uL (3.6-5.1)
[2019-01-31] MEDS ORDERED: LIDOCAINE HCL 2% LOCAL INJ 5 ML SDV VIAL INJ ONE (18:41)
[2019-01-31] MEDS ORDERED: PROPOFOL IV EMULSION 10 MG/ML 50 ML VIAL ONE (18:41)
--- NOTE | 2019-01-31 19:10 | NUR ---
Received bedside report from day nurse. Patient resting in bed, no s/s of distress or c/o pain at this time. All safety measures in place. Family at bedside. Will continue to monitor.
--- NOTE | 2019-01-31 19:58 | NUR ---
Paged Dr. Dumont regarding patient's elevated blood pressure of 162/54. Awaiting return call. Patient resting in bed, no s/s of distress or c/o pain at this time. All safety measures in place. Will continue to monitor.
--- NOTE | 2019-01-31 20:12 | NUR ---
Spoke to Dr. Dumont and received orders to continue metoprolol.
[2019-01-31] MEDS: METOPROLOL TARTRATE 25 MG TAB PO SCH (20:25)
--- NOTE | 2019-01-31 22:18 | NUR ---
Patient currently off unit for GI bleed scan.
--- NOTE | 2019-01-31 23:30 | NUR ---
Patient returned to unit via wheelchair. In stable condition, no s/s of distress or c/o pain at this time. All safety measures in place. Family at bedside. Will continue to monitor.
[2019-01-31] MEDS: TRAZODONE HCL 50 MG TAB PO SCH (23:41)
--- NOTE | 2019-01-31 23:47 | Diagnostic Imaging Report ---
Tagged-RBC GI Bleed Study Clinical information: 73-year-old female with melena x5-6 days. Had coronary stent placed last week and was started on coumadin. Discussion: The patient's own red blood cells were labeled with 26.5 mCi of technetium-99m pertechnetate using the in vitro method (UltraTag). Dynamic images of the abdomen were obtained through 60 minutes. Distribution of tracer activity appears physiologic throughout the abdomen. No abnormal accumulation of tracer is seen within the gastrointestinal lumen. Impression: No scan evidence of active gastrointestinal bleeding at this time. Signed by: Dr. Connie Arauz M.D. on 01/31/2019 11:42 PM
[2019-02-01] VITALS (7 sets, daily range): BP systolic 111–151; BP diastolic 55–76
--- NOTE | 2019-02-01 01:45 | NUR ---
Dr. Primitivo Gardner here to see patient. Per Dr. Gardner, call cardiology in the morning to notify MD of negative EGD and GI bleed scan, get orders for anticoagulation medication, and inform them that colonoscopy is planned for .
[2019-02-01] MEDS: LACTATED RINGER'S 1,000 ML IV SCH ×2 (04:11→17:40)
[2019-02-01 05:49] LABS: BASOPHILS % 0.6 % (0.0-1.0); EOSINOPHILS # (AUTO) 0.3 (0.0-0.4); HEMATOCRIT 27.7 % (34.2-44.1); HEMOGLOBIN 8.6 g/dL (12.0-16.0); LYMPHOCYTES # (AUTO) 1.4 (1.0-3.2); LYMPHOCYTES % 28.6 % (18.0-39.1); MEAN CORPUSCULAR VOLUME 96.5 fL (81-99); MONOCYTES # (AUTO) 0.4 (0.2-0.8); MONOCYTES % 7.5 % (4.4-11.3); NEUTROPHILS # (AUTO) 2.9 (2.1-6.9); NEUTROPHILS % 57.9 % (38.7-80.0); PLATELET COUNT 227 x10e3/uL (140-360); RED BLOOD COUNT 2.87 x10e6/uL (3.6-5.1); RED CELL DISTRIBUTION WIDTH 15.2 % (11.7-14.4)
--- NOTE | 2019-02-01 06:41 | NUR ---
Per Dr. Gardner, paged Dr. Arredondo to give patient updates and get orders for anticoagulation medication. Spoke with Dr. Emily Stanley and was told that he is not familiar with the patient, and that Dr. Salas will be rounding this morning and will make the decision. Will pass along to day shift nurse.
--- NOTE | 2019-02-01 06:58 | NUR ---
Bedside report given to day nurse. Patient resting in bed, no s/s of distress or c/o pain at this time. All safety measures in place.
--- NOTE | 2019-02-01 07:16 | NUR ---
Patient alert and responsive, received this morning and no resp distress, in bed, call light within reach, rounds completed, will monitor.
[2019-02-01] MEDS: PANTOPRAZOLE 40 MG 10ML VIAL IV SCH ×2 (09:00→21:10)
[2019-02-01] MEDS: METOPROLOL TARTRATE 25 MG TAB PO SCH (09:00)
--- NOTE | 2019-02-01 09:54 | NUR ---
R1 DETERMINATION: INPT Addendum: 02/01/19 at 0956 by Kary Boyce CM YUN MORALES RN. STATES HE WILL ASK FOR AN INPT ORDER. COPY OF DETERMINATION PLACED ON THE FRONT OF THE CHART.
--- NOTE | 2019-02-01 09:57 | NUR ---
Call to Dr. Dumont and orders to change patient to inpatient admit
[2019-02-01] MEDS ORDERED: HEPARIN SOD (PORCINE) 5,000 UNIT/ML VIAL IV ONE (14:45)
[2019-02-01] MEDS ORDERED: HEPARIN 25,000 UNIT 1,400 UNIT in DEXTROSE 5% 250ML 250 ML IV SCH (14:45)
[2019-02-01] MEDS: HEPARIN 25,000 UNIT 1,400 UNIT in DEXTROSE 5% 250ML 250 ML IV SCH (15:00)
--- NOTE | 2019-02-01 15:09 | NUR ---
Rounds by Dr. Salas and orders to start patient on Heparin drip DVT protocol without a loading dose, started at this time and will titrate accordingly. Will monitor for any signs of bleeding.
--- NOTE | 2019-02-01 16:21 | NUR ---
Call from Dr. Primitivo Gardner and orders in place for bowel prep for colonoscopy tomorrow.,
[2019-02-01] MEDS ORDERED: BISACODYL 5 MG TAB EC PO ONE ×3 (16:30→18:30)
--- NOTE | 2019-02-01 18:40 | Progress Note ---
DATE: 02/01/2019 Cardiology Progress Note SUBJECTIVE: The patient denies chest pain or shortness of breath. OBJECTIVE: VITAL SIGNS: Temperature 97.5 degrees, pulse 71, respiratory rate 18, blood pressure 151/76, and oxygen saturation 94%. GENERAL: Awake, alert, in no acute distress. LUNGS: Clear to auscultation bilaterally. No wheezes or crackles. CARDIOVASCULAR: Normal rate. Regular rhythm. Mechanical S2. ABDOMEN: Soft and nontender. EXTREMITIES: No edema. CARDIAC MEDICATIONS: Metoprolol tartrate 25 mg p.o. b.i.d. LABORATORY DATA: WBC 5.04, hemoglobin 8.6, hematocrit 27.7, and platelets 227. TELEMETRY: V-paced. IMPRESSION: 1. Acute gastrointestinal bleeding. 2. Mechanical aortic valve replacement. 3. Bioprosthetic mitral valve replacement. 4. Coronary artery disease, status post recent percutaneous coronary intervention. 5. Hypertension. 6. Hyperlipidemia. 7. Chronic kidney disease. RECOMMENDATIONS: The patient's anti-platelet therapy has been held at this time. We will monitor very closely for symptoms given her recent PCI. She will need to be restarted on Plavix as soon as possible. Resume heparin today. Continue current cardiac medications otherwise. Monitor the patient closely on telemetry. Further evaluation of GI bleeding per Gastroenterology. Thank you for this consult. We will continue to follow. Caridad Salas MD [facility]/MODL /[id number]
[2019-02-01] MEDS ORDERED: CITRATE OF MAGNESIA 300ML BOTTLE PO ONE ×2 (21:00→23:00)
--- NOTE | 2019-02-01 21:15 | NUR ---
PTT RESULT BACK AT THIS TIME READING 102.6, WILL HOLD HEPARIN INFUSION FOR 30 MINS. WHEN RESUMED THE RATE WILL BE DECREASED BY 150 UNITS. FROM 14 MLS/HR TO 12.5 MLS/HR PER PROTOCOL.
--- NOTE | 2019-02-01 21:45 | NUR ---
HEPARIN DRIP RESUMED AT 12.5 MLS/HR. WILL REPEAT PTT AFTER 6 HOURS PER PROTOCOL.
[2019-02-02] VITALS (9 sets, daily range): BP systolic 108–134; BP diastolic 52–63
[2019-02-02] MEDS: METOPROLOL TARTRATE 25 MG TAB PO SCH ×3 (00:12→17:41)
--- NOTE | 2019-02-02 00:47 | NUR ---
SPOKE TO DR. Franklin GERARDO REGARDING PATIENT STILL NAUSEATED. NEW ORDER RECEIVED FOR PRN PHENERGAN IV.
[2019-02-02] MEDS ORDERED: PROMETHAZINE 12.5MG/ NACL 0.9% 12.5 MG/50 ML BAG IV PRN (01:00)
[2019-02-02 04:30] LABS: BASOPHILS % 0.5 % (0.0-1.0); EOSINOPHILS # (AUTO) 0.3 (0.0-0.4); EOSINOPHILS % 3.2 % (0.0-6.0); HEMATOCRIT 31.9 % (34.2-44.1); LYMPHOCYTES # (AUTO) 2.2 (1.0-3.2); LYMPHOCYTES % 25.3 % (18.0-39.1); MEAN CORPUSCULAR HEMOGLOBIN 29.9 pg (28-32); MEAN CORPUSCULAR HGB CONC 31.3 g/dL (31-35); MEAN CORPUSCULAR VOLUME 95.5 fL (81-99); MONOCYTES # (AUTO) 0.5 (0.2-0.8); MONOCYTES % 5.5 % (4.4-11.3); NEUTROPHILS # (AUTO) 5.7 (2.1-6.9); NEUTROPHILS % 65.2 % (38.7-80.0); PLATELET COUNT 263 x10e3/uL (140-360); RED BLOOD COUNT 3.34 x10e6/uL (3.6-5.1); RED CELL DISTRIBUTION WIDTH 15.1 % (11.7-14.4)
[2019-02-02 04:46] LABS: ALBUMIN 3.5 g/dL (3.5-5.0); ANION GAP 16.5 mmol/L (8-16); CALCIUM 9.7 mg/dL (8.4-10.2); CREATININE, SERUM 1.39 mg/dL (0.57-1.11); POTASSIUM 3.5 mmol/L (3.5-5.1)
--- NOTE | 2019-02-02 04:47 | NUR ---
PTT RESULT CAME BACK AT THIS TIME READING 138.3, WILL HOLD HEPARIN INFUSION FOR 60 MINS. WHEN RESUMED HEPARIN WILL BE DECREASED BY 200 UNITS. FROM 12.5 MLS/HR TO 10.5 MLS/HR PER PROTOCOL.
--- NOTE | 2019-02-02 05:48 | NUR ---
HEPARIN DRIP RESUMED AT 10.5 MLS/HR. REPEAT PTT AFTER 6 HOURS PER PROTOCOL.
--- NOTE | 2019-02-02 06:36 | NUR ---
SPOKE TO DR. PERRY AT THIS TIME. SAID TO HOLD HEPARIN DRIP NOW DUE TO COLONOSCOPY SCHEDULED AROUND 1300 TO 1400 TODAY.
--- NOTE | 2019-02-02 06:38 | NUR ---
HEPARIN DRIP ON HOLD NOW.
[2019-02-02] MEDS: LACTATED RINGER'S 1,000 ML IV SCH (07:00)
[2019-02-02] MEDS: PANTOPRAZOLE 40 MG 10ML VIAL IV SCH ×2 (09:05→20:20)
--- NOTE | 2019-02-02 13:40 | Progress Note ---
DATE: 02/02/2019 Cardiology Progress Note SUBJECTIVE: The patient is feeling better. Denies any continued GI bleeding. Scheduled for colonoscopy today. No chest pain or shortness of breath. OBJECTIVE: VITAL SIGNS: Temperature is 97.4, heart rate is 60, respirations are 14, blood pressure is 110/54. GENERAL: Well appearing, in no apparent distress. CARDIOVASCULAR: Regular rate and rhythm. LUNGS: Clear to auscultation. ABDOMEN: Soft, nontender, and nondistended. EXTREMITIES: No edema. Cardiovascular medications reviewed. Heparin drip has been stopped. LABORATORY DATA: Reveals a hemoglobin of 10. Creatinine is 1.39. Telemetry monitoring revealed ventricular paced rhythm. IMPRESSION: 1. Acute gastrointestinal bleeding. 2. Mechanical aortic valve replacement. 3. Bioprosthetic mitral valve replacement. 4. Coronary artery disease, status post recent percutaneous coronary intervention. 5. Hypertension. 6. Hyperlipidemia. 7. Chronic kidney disease. 8. Anemia. RECOMMENDATIONS: The patient's anti-platelet therapy has been held at this point in time. Nuclear medicine bleeding scan did not reveal any obvious source of bleed. The patient is scheduled for colonoscopy. Please resume heparin if okay with Gastroenterology after her colonoscopy today. If no obvious source of bleeding is found, she will need a small bowel pill endoscopy. I would like to get her back on Plavix and anticoagulation prior to discharge. Likely, we will need to ensure no recurrent GI bleed and stable hemoglobins prior to discharge. DO CHRISTINE Reyes/MODL /[id number] ALINE
[2019-02-02] MEDS ORDERED: LIDOCAINE HCL 2% LOCAL INJ 5 ML SDV VIAL INJ ONE (14:49)
[2019-02-02] MEDS ORDERED: PROPOFOL IV EMULSION 10 MG/ML 50 ML VIAL ONE (14:49)
[2019-02-02] MEDS ORDERED: HYOSCYAMINE 0.125 MG TAB ONE (15:19)
--- NOTE | 2019-02-02 17:13 | NUR ---
Received report from Bogdan in recovery. Patient is s/p colonoscopy. She reported Dr. Franklin Gardner said to "resume blood thinners and give solid food". Paged Dr. Franklin Gardner to confirm. Waiting instructional systems design consultant back.
--- NOTE | 2019-02-02 17:22 | NUR ---
Patient arrived back to the floor from the OR. She is awake alert and oriented x3. She has no complaints at this time. VS: T: 97.7 P: 65 BP: 127/56 02: 96% on RA
--- NOTE | 2019-02-02 17:53 | NUR ---
Spoke to Dr. Franklin Gardner, he said it is OK for patient to resume all blood thinners and have patient make follow up appointment for capsule endoscopy.
--- NOTE | 2019-02-02 18:29 | NUR ---
Spoke to Dr. Jaye Stanley regarding resuming heparin drip vs PO blood thinners. New orders received. Per Dr. Jaye Stanley patient is to resume heparin drip at previous rate along with Coumadin and Plavix. Giving first dose of Coumadin and Plavix this evening. Will hold off on Aspirin for now/
--- NOTE | 2019-02-02 19:31 | Operative Report ---
DATE OF PROCEDURE: 02/02/2019 SURGEON: Mratinez Gardner MD PROCEDURE: Colonoscopy with polypectomy. INDICATIONS FOR PROCEDURE: Anemia, melanotic stools. MEDICATIONS: The patient was done under MAC, please see anesthesiologist's note. PROCEDURE IN DETAIL: With the patient in the left lateral decubitus position, a flexible fiberoptic Olympus colonoscope was inserted into the rectum with ease and advanced all the way to the cecum. It was then withdrawn slowly. Mucosa overlying the cecum, ascending colon, transverse colon, and descending colon appeared to be within normal limits. Some diverticular disease was noted in the distal descending and the sigmoid colon. A minute polyp was removed from the sigmoid colon per hot biopsy forceps. The rectum appeared to be within normal limits. The scope was then retroflexed into the distal rectum and moderate-sized internal hemorrhoids were noted, none of which was actively bleeding. The scope was then straightened out and it was subsequently withdrawn. The anal canal was somewhat tight and tender and was suboptimally examined endoscopically. The patient tolerated the procedure well. IMPRESSION: 1. Diverticulosis. 2. Sigmoid colon polyp, hot biopsied. 3. Internal hemorrhoids, none actively bleeding. 4. Anal canal tight, tender. PLAN: Follow up histology. Findings do not necessarily explain the patient's melena. We will need capsule endoscopy, which is to be done on an outpatient basis. Can probably restart the patient's anticoagulants. Martinez Gardner MD [facility] [place] [facility] [place] /[id number] cc: MD Celio Mcnulty DO
--- NOTE | 2019-02-02 19:50 | NUR ---
Received report from day nurse. Patient resting in bed, no s/s of distress or bleeding or c/o pain at this time. All safety measures in place. Will continue to monitor.
[2019-02-02] MEDS ORDERED: CLOPIDOGREL BISULFATE 75 MG TAB PO ONE (20:00)
--- NOTE | 2019-02-02 20:00 | NUR ---
Heparin drip restarted at 10.5 ml/hr as ordered. Patient in stable condition, no s/s of bleeding or distress at this time. All safety measures in place. Will continue to monitor.
[2019-02-02] MEDS: TRAZODONE HCL 50 MG TAB PO SCH (20:20)
[2019-02-02] MEDS ORDERED: CLOPIDOGREL BISULFATE 300 MG TAB-DO NOT STOCK PO ONE (21:00)
[2019-02-02] MEDS ORDERED: WARFARIN SOD 5 MG TAB PO ONE (21:00)
[2019-02-03] VITALS (8 sets, daily range): BP systolic 111–155; BP diastolic 51–77
[2019-02-03] MEDS: HEPARIN 25,000 UNIT 1,400 UNIT in DEXTROSE 5% 250ML 250 ML IV SCH (01:20)
[2019-02-03] MEDS: LACTATED RINGER'S 1,000 ML IV SCH ×2 (01:22→09:40)
--- NOTE | 2019-02-03 02:55 | NUR ---
Notified by lab of PTT results of 44.1. Heparin drip infusion rate increased by 100 units/hr per protocol. Will order repeat PTT lab in 6 hours. Patient in stable condition, no s/s of distress or bleeding at this time. All safety measures in place. Will continue to monitor.
--- NOTE | 2019-02-03 07:31 | NUR ---
Handoff report given to charge nurse. Patient resting in bed, no s/s of distress or c/o pain at this time. All safety measures in place.
[2019-02-03] MEDS: CLOPIDOGREL BISULFATE 75 MG TAB PO SCH (08:14)
[2019-02-03] MEDS: PANTOPRAZOLE 40 MG 10ML VIAL IV SCH ×2 (08:14→20:00)
[2019-02-03] MEDS: METOPROLOL TARTRATE 25 MG TAB PO SCH ×2 (08:14→17:36)
--- NOTE | 2019-02-03 08:15 | NUR ---
A call was received from the ab with reported P 125.9. Orders are to stop the infusion for 60 minutes and decrease rat by 200 units.
[2019-02-03 08:22] LABS: BASOPHILS % 0.5 % (0.0-1.0); EOSINOPHILS # (AUTO) 0.4 (0.0-0.4); EOSINOPHILS % 5.1 % (0.0-6.0); HEMATOCRIT 30.2 % (34.2-44.1); HEMOGLOBIN 9.4 g/dL (12.0-16.0); LYMPHOCYTES # (AUTO) 2.7 (1.0-3.2); LYMPHOCYTES % 35.8 % (18.0-39.1); MEAN CORPUSCULAR HGB CONC 31.1 g/dL (31-35); MEAN CORPUSCULAR VOLUME 96.5 fL (81-99); MONOCYTES # (AUTO) 0.4 (0.2-0.8); MONOCYTES % 5.5 % (4.4-11.3); NEUTROPHILS # (AUTO) 3.9 (2.1-6.9); NEUTROPHILS % 52.7 % (38.7-80.0); PLATELET COUNT 252 x10e3/uL (140-360); RED BLOOD COUNT 3.13 x10e6/uL (3.6-5.1); RED CELL DISTRIBUTION WIDTH 15.6 % (11.7-14.4)
--- NOTE | 2019-02-03 14:10 | NUR ---
Visit made by the Spiritual Care Department Pastoral Visitor, Teresita Cano. PV provided pastoral presence, prayer, hospitality, and supportive listening. Pastoral Visitor informed pt/family of the scope of [employer] Caregiver Services and availability. JANES TONEY [employer] Spiritual Care Department O: [phone] Pager: [phone] ([phone] number calling from)
[2019-02-03 16:46] LABS: INR 1.15; PROTHROMBIN TIME 15.3 seconds (11.9-14.5)
[2019-02-03 17:22] LABS: INR 1.1; PROTHROMBIN TIME 14.7 seconds (11.9-14.5)
[2019-02-03] MEDS: WARFARIN SOD 5 MG TAB PO SCH (17:36)
--- NOTE | 2019-02-03 19:26 | NUR ---
Received handoff report from day nurse. Patient resting in bed, no s/s of distress, bleeding, or c/o pain at this time. All safety measures in place. Family at bedside. 1836 PTT lab results still pending at this time. Will continue to monitor.
--- NOTE | 2019-02-03 19:33 | Progress Note ---
DATE: 02/03/2019 Cardiology Progress Note SUBJECTIVE: The patient is feeling better. No further GI bleeding. OBJECTIVE: VITAL SIGNS: Temperature is 96.6, heart rate 75, respirations are 16, blood pressure is 142/77, ox saturation 96% on room air. GENERAL: Well appearing. No apparent distress. CARDIOVASCULAR: Regular rate and rhythm. LUNGS: Clear to auscultation. ABDOMEN: Soft, nontender, nondistended. EXTREMITIES: No clubbing, cyanosis, or edema. CARDIOVASCULAR MEDICATIONS: Reviewed. LABORATORY DATA: Reviewed. Hemoglobin 9.4. IMPRESSION: 1. Acute gastrointestinal bleed. 2. Mechanical aortic valve replacement. 3. Bioprosthetic mitral valve replacement. 4. Coronary artery disease status post percutaneous coronary intervention. 5. Hypertension. 6. Hyperlipidemia. 7. Chronic kidney disease. RECOMMENDATIONS: The patient underwent colonoscopy with no obvious source of bleeding. She is then recommended to have a capsule endoscopy as an outpatient. Her anticoagulation and Plavix have been restarted. We would like to ensure no bleeding and stable hemoglobins while on the anticoagulants. DO CHRISTINE Reyes/MODL /[id number] ALINE
--- NOTE | 2019-02-03 19:46 | NUR ---
Received PTT results of 89.4 from blood sample drawn at 1551. Will increase heparin drip by 100 units/hr per protocol and redraw PTT at 2200.
[2019-02-03] MEDS: TRAZODONE HCL 50 MG TAB PO SCH (20:00)
--- NOTE | 2019-02-03 22:33 | NUR ---
PTT therapeutic at 72.5. No changes made to heparin infusion rate. Will re-check PTT in 6 hours per protocol.
[2019-02-04] VITALS (8 sets, daily range): BP systolic 111–156; BP diastolic 53–67
--- NOTE | 2019-02-04 00:59 | NUR ---
Dr. Primitivo Gardner here to see patient. Received orders to continue Miralax.
[2019-02-04] MEDS ORDERED: NON-FORMULARY MEDICATION (Polyethylene Glycol 3350 (Miralax) 17 GM) PO PRN (01:00)
[2019-02-04] MEDS ORDERED: POLYETHYLENE GLYCOL 3350 17 GM PACK PO PRN (01:02)
[2019-02-04] MEDS: HEPARIN 25,000 UNIT 1,400 UNIT in DEXTROSE 5% 250ML 250 ML IV SCH (03:05)
--- NOTE | 2019-02-04 04:15 | NUR ---
PTT, PT, CBC, and CMP labs drawn as ordered and sent to lab.
[2019-02-04] MEDS: LACTATED RINGER'S 1,000 ML IV SCH ×2 (04:18→12:26)
[2019-02-04 04:22] LABS: BASOPHILS % 0.7 % (0.0-1.0); EOSINOPHILS # (AUTO) 0.3 (0.0-0.4); HEMATOCRIT 27.4 % (34.2-44.1); HEMOGLOBIN 8.5 g/dL (12.0-16.0); LYMPHOCYTES # (AUTO) 2.2 (1.0-3.2); LYMPHOCYTES % 35.8 % (18.0-39.1); MEAN CORPUSCULAR HEMOGLOBIN 29.8 pg (28-32); MEAN CORPUSCULAR VOLUME 96.1 fL (81-99); MONOCYTES # (AUTO) 0.4 (0.2-0.8); MONOCYTES % 5.9 % (4.4-11.3); NEUTROPHILS # (AUTO) 3.2 (2.1-6.9); NEUTROPHILS % 52.4 % (38.7-80.0); PLATELET COUNT 214 x10e3/uL (140-360); RED BLOOD COUNT 2.85 x10e6/uL (3.6-5.1); RED CELL DISTRIBUTION WIDTH 15.7 % (11.7-14.4)
[2019-02-04 04:47] LABS: ALBUMIN 2.8 g/dL (3.5-5.0); ALBUMIN/GLOBULIN RATIO 1.1 (0.8-2.0); ANION GAP 11.7 mmol/L (8-16); CALCIUM 8.7 mg/dL (8.4-10.2); CREATININE, SERUM 1.2 mg/dL (0.57-1.11); POTASSIUM 3.7 mmol/L (3.5-5.1)
--- NOTE | 2019-02-04 05:55 | NUR ---
Notified by lab of PTT level >200. Per protocol stopped heparin infusion. Will restart in one hour with infusion rate decreased by 200 units/hr and redraw PTT in 6 hours. Patient in stable condition, no s/s of distress or bleeding at this time. All safety measures in place. Will continue to monitor.
[2019-02-04 06:50] LABS: PROTHROMBIN TIME > 150.0 seconds (11.9-14.5)
--- NOTE | 2019-02-04 07:06 | NUR ---
Handoff report given to charge nurse. Notified by lab of elevated PT results. Orders to redraw PT and PTT. Heparin drip was previously running at 10.5 ml/hr and has been stopped since 0600. Patient in stable condition, no s/s of distress, bleeding, or c/o pain at this time. All safety measures in place.
--- NOTE | 2019-02-04 07:14 | NUR ---
coags redrawn due to drastic change in labs. heparin on hold at this time. will proceed accordingly when new lab results obtained.
[2019-02-04 07:55] LABS: INR 1.13; PROTHROMBIN TIME 15.1 seconds (11.9-14.5)
[2019-02-04 07:56] LABS: PARTIAL THROMBOPLASTIN TIME 72.3 seconds (23.8-35.5)
[2019-02-04] MEDS: PANTOPRAZOLE 40 MG 10ML VIAL IV SCH ×2 (08:32→20:25)
[2019-02-04] MEDS: CLOPIDOGREL BISULFATE 75 MG TAB PO SCH (08:32)
[2019-02-04] MEDS: METOPROLOL TARTRATE 25 MG TAB PO SCH ×2 (08:33→16:25)
--- NOTE | 2019-02-04 08:33 | NUR ---
heparin restarted at 900u/hr for ptt 72
[2019-02-04 15:42] LABS: FERRITIN 129.72 ng/mL (4.63-204.00)
--- NOTE | 2019-02-04 16:12 | Progress Note ---
DATE: 02/04/2019 Cardiology Progress Note SUBJECTIVE: No major events overnight. OBJECTIVE: VITAL SIGNS: Temperature afebrile, pulse 66, respiratory rate 18, blood pressure 137/62 saturating 98% on room air. GENERAL: Well developed, well nourished, no acute distress. CARDIOVASCULAR: Regular rate and rhythm. No murmurs, rubs, or gallops. LUNGS: Clear to auscultation bilaterally. ABDOMEN: Soft, nontender, nondistended. NEURO AND PSYCH: Alert and oriented to person, place, and time. INPATIENT MEDICATIONS: Reviewed. LABORATORY DATA: Reviewed. Hemoglobin remained stable. ASSESSMENT: 1. Acute gastrointestinal bleed. 2. Mechanical aortic valve replacement. 3. Bioprosthetic mitral valve replacement. 4. Coronary artery disease, status post percutaneous coronary intervention. 5. Hypertension. 6. Hyperlipidemia. 7. Chronic kidney disease. RECOMMENDATIONS: Continue heparin bridge to Coumadin. Goal INR is 2.5 to 3.5. Continue on Plavix given recent percutaneous coronary intervention. Thank you for this consult. We will continue to follow. MD KATELYN Hannon/KAY /[id number]
[2019-02-04] MEDS: WARFARIN SOD 5 MG TAB PO SCH (16:24)
--- NOTE | 2019-02-04 18:33 | NUR ---
ptt 65. no change in heparin drip per protocol.
--- NOTE | 2019-02-04 19:30 | NUR ---
patient received awake, alert, sitting up in chair. no c/o pain noted. iv heparin continues to infuse without difficulty. pm assessment complete. patient instructed to call for assistance when needed.
[2019-02-04] MEDS: TRAZODONE HCL 50 MG TAB PO SCH (20:25)
[2019-02-04] MEDS ORDERED: ATORVASTATIN 20 MG TAB PO SCH (21:00)
[2019-02-05] VITALS (8 sets, daily range): BP systolic 119–151; BP diastolic 57–76
[2019-02-05 05:30] LABS: BASOPHILS % 0.3 % (0.0-1.0); EOSINOPHILS # (AUTO) 0.4 (0.0-0.4); EOSINOPHILS % 6.1 % (0.0-6.0); HEMATOCRIT 27.4 % (34.2-44.1); HEMOGLOBIN 8.5 g/dL (12.0-16.0); LYMPHOCYTES # (AUTO) 1.6 (1.0-3.2); LYMPHOCYTES % 26.5 % (18.0-39.1); MEAN CORPUSCULAR HEMOGLOBIN 29.9 pg (28-32); MEAN CORPUSCULAR VOLUME 96.5 fL (81-99); MONOCYTES # (AUTO) 0.5 (0.2-0.8); MONOCYTES % 7.8 % (4.4-11.3); NEUTROPHILS # (AUTO) 3.5 (2.1-6.9); PLATELET COUNT 209 x10e3/uL (140-360); RED BLOOD COUNT 2.84 x10e6/uL (3.6-5.1); RED CELL DISTRIBUTION WIDTH 15.7 % (11.7-14.4)
--- NOTE | 2019-02-05 05:50 | NUR ---
ptt 107.3 heparin drip held x 30 minutes, rate decreased by 150 units hr and next ptt ordered in six hrs per heparin protocol.
[2019-02-05 06:25] LABS: INR 1.23; PROTHROMBIN TIME 16.1 seconds (11.9-14.5)
--- NOTE | 2019-02-05 07:09 | NUR ---
PT AWAKE RESP EVEN AND UNLABORED AT THIS TIME NO DISTRESS NOTED , SITING IN RECLINER IN ROOM, PT ABLE TO MAKE NEEDS KNOWN, CALL LIGHT IN REACH, WILL CONT TO MONITOR.
[2019-02-05] MEDS: CLOPIDOGREL BISULFATE 75 MG TAB PO SCH (09:00)
[2019-02-05] MEDS: PANTOPRAZOLE 40 MG 10ML VIAL IV SCH ×2 (09:00→20:35)
[2019-02-05] MEDS: METOPROLOL TARTRATE 25 MG TAB PO SCH ×2 (09:00→17:08)
--- NOTE | 2019-02-05 10:50 | NUR ---
Visit made by the Spiritual Care Department Pastoral Visitor, Cheli Lindsay. PV provided pastoral presence, prayer, hospitality, and supportive listening. Pastoral Visitor informed pt/family of the scope of [employer] Services and availability. JANES TONEY [employer] Spiritual Care Department O: [phone] Pager: [phone] ([phone] number calling from)
[2019-02-05] MEDS ORDERED: HEPARIN 25,000 UNIT DRIP IV ONE (11:07)
[2019-02-05] MEDS: HEPARIN 25,000 UNIT 1,400 UNIT in DEXTROSE 5% 250ML 250 ML IV SCH (11:59)
[2019-02-05] MEDS ORDERED: BISACODYL 5 MG TAB EC PO ONE (15:00)
[2019-02-05] MEDS ORDERED: POLYETHYLENE GLYCOL 3350 17 GM PACK PO PRN (15:00)
[2019-02-05] MEDS: WARFARIN SOD 5 MG TAB PO SCH (17:08)
--- NOTE | 2019-02-05 18:39 | Progress Note ---
DATE: 02/05/2019 Cardiology Progress Note SUBJECTIVE: No major events overnight. OBJECTIVE: VITAL SIGNS: Temperature afebrile, pulse 65, respiratory rate 20, blood pressure 137/57 saturating 95% on room air. GENERAL: Well developed, well nourished, no acute distress. CARDIOVASCULAR: Regular rate and rhythm. No murmurs, rubs, or gallops. LUNGS: Clear to auscultation bilaterally. ABDOMEN: Soft, nontender, nondistended. NEURO AND PSYCH: Alert and oriented to person, place and time, normal affect. INPATIENT MEDICATIONS: Reviewed. LABORATORY DATA: Reviewed. ASSESSMENT: 1. Acute gastrointestinal bleeding of unclear source, status post esophagogastroduodenoscopy and colonoscopy. 2. Mechanical aortic valve replacement. 3. Bioprosthetic mitral valve replacement. 4. Coronary artery disease, status post recent percutaneous coronary intervention. 5. Hypertension. 6. Hyperlipidemia. 7. Chronic kidney disease. RECOMMENDATIONS: Continue heparin bridge to Coumadin. Continue Plavix. Goal INR is 2.5 to 3.5. Given recent GI bleeding, would recommend a range closer to 2.5. Thank you for this consult. We will continue to follow. MD KATELYN Hannon/KAY /[id number]
[2019-02-05] MEDS: TRAZODONE HCL 50 MG TAB PO SCH (20:37)
[2019-02-05] MEDS: ATORVASTATIN 40 MG TAB PO SCH (20:38)
[2019-02-06] VITALS (7 sets, daily range): BP systolic 117–149; BP diastolic 57–64
--- NOTE | 2019-02-06 01:30 | NUR ---
PT ptt 72.2 NO CHANGE ON HEPARIN.
[2019-02-06 05:42] LABS: BASOPHILS % 0.4 % (0.0-1.0); EOSINOPHILS # (AUTO) 0.3 (0.0-0.4); EOSINOPHILS % 4.4 % (0.0-6.0); HEMATOCRIT 27.1 % (34.2-44.1); HEMOGLOBIN 8.4 g/dL (12.0-16.0); LYMPHOCYTES # (AUTO) 1.7 (1.0-3.2); LYMPHOCYTES % 30.3 % (18.0-39.1); MEAN CORPUSCULAR HEMOGLOBIN 30.2 pg (28-32); MEAN CORPUSCULAR VOLUME 97.5 fL (81-99); MONOCYTES # (AUTO) 0.4 (0.2-0.8); MONOCYTES % 7.1 % (4.4-11.3); NEUTROPHILS # (AUTO) 3.3 (2.1-6.9); NEUTROPHILS % 57.4 % (38.7-80.0); PLATELET COUNT 206 x10e3/uL (140-360); RED BLOOD COUNT 2.78 x10e6/uL (3.6-5.1); RED CELL DISTRIBUTION WIDTH 15.7 % (11.7-14.4)
[2019-02-06 05:52] LABS: INR 1.4; PROTHROMBIN TIME 17.7 seconds (11.9-14.5)
[2019-02-06 07:11] LABS: CREATININE, SERUM 1.19 mg/dL (0.57-1.11)
[2019-02-06] MEDS: IRON-VITAMIN-MINERAL CAPSULE PO SCH ×2 (08:27→16:47)
[2019-02-06] MEDS: DOCUSATE SODIUM 100 MG CAP PO SCH (08:27)
[2019-02-06] MEDS: PANTOPRAZOLE 40 MG 10ML VIAL IV SCH ×2 (08:27→21:11)
[2019-02-06] MEDS: METOPROLOL TARTRATE 25 MG TAB PO SCH ×2 (08:27→16:48)
[2019-02-06] MEDS: CLOPIDOGREL BISULFATE 75 MG TAB PO SCH (08:28)
[2019-02-06] MEDS ORDERED: DIPHENHYDRAMINE HCL INJ 25 MG in SODIUM CHLORIDE 0.9% 50ML 50 ML IM ONE (11:00)
[2019-02-06] MEDS ORDERED: DEXAMETHASONE SOD PHOS IV ONE (11:30)
[2019-02-06] MEDS ORDERED: SODIUM CHLORIDE 0.9% IV ONE (11:30)
--- NOTE | 2019-02-06 11:48 | Progress Note ---
DATE: 02/06/2019 Cardiology Progress Note SUBJECTIVE: The patient denies chest pain or shortness of breath. OBJECTIVE: VITAL SIGNS: Temperature 96.9 degrees, pulse 61, respiratory rate 18, blood pressure 138/62, oxygen saturation 94% on room air. GENERAL: Awake, alert, in no acute distress. LUNGS: Clear to auscultation bilaterally. No wheezes or crackles. CARDIOVASCULAR: Normal rate, regular rhythm, mechanical S2. No murmur. ABDOMEN: Soft, nontender. EXTREMITIES: 1+ pitting edema at the ankles. CARDIAC MEDICATIONS: Plavix 75 mg p.o. daily, metoprolol tartrate 25 mg p.o. b.i.d., atorvastatin 40 mg p.o. at bedtime, heparin drip, warfarin 7 mg p.o. daily. LABORATORY DATA: WBC 5.65, hemoglobin 8.4, hematocrit 27.1, platelets 206. Sodium 141, potassium 4, chloride 104, CO2 29, BUN 9, and creatinine is 1.19. INR 1.4. TELEMETRY: V-paced. IMPRESSION: 1. Acute gastrointestinal bleeding of unclear source, status post esophagogastroduodenoscopy and colonoscopy. 2. Mechanical aortic valve replacement. 3. Bioprosthetic mitral valve replacement. 4. Coronary artery disease, status post recent percutaneous coronary intervention. 5. Hypertension. 6. Hyperlipidemia. 7. Chronic kidney disease. RECOMMENDATIONS: Continue heparin bridge to therapeutic INR. Continue Plavix. Monitor volume status closely. Continue current cardiac medications. Thank you for this consult. We will continue to follow. Caridad Salas MD ABS/MODL /[id number]
[2019-02-06] MEDS ORDERED: FAMOTIDINE INJ 20 MG in SODIUM CHLORIDE 0.9% 50ML 50 ML IV ONE (12:00)
[2019-02-06] MEDS ORDERED: SODIUM CHLORIDE 0.9% 250ML 250 ML ONE (12:00)
--- NOTE | 2019-02-06 12:14 | NUR ---
Received patient in room. AAOX4 to time, person, place, situation. Respirations even and unlabored. Heparin 7.5ml via left FA IV. No signs of infiltration noted. Instructed to use call light for assistance. Voiced understanding.
[2019-02-06] MEDS ORDERED: IRON DEXTRAN INJ 50 MG in SODIUM CHLORIDE 0.9% 100 ML 100 ML INJ ONE (12:30)
[2019-02-06] MEDS ORDERED: IRON DEXTRAN INJ 500 MG in SODIUM CHLORIDE 0.9% 500ML 500 ML INJ ONE (14:30)
[2019-02-06] MEDS: WARFARIN SOD 5 MG TAB PO SCH (16:47)
[2019-02-06] MEDS: WARFARIN SOD 2 MG TAB PO SCH (16:47)
[2019-02-06] MEDS: HEPARIN 25,000 UNIT 1,400 UNIT in DEXTROSE 5% 250ML 250 ML IV SCH (18:34)
--- NOTE | 2019-02-06 19:23 | NUR ---
Report given to oncoming nurse of patient's status. Sitting on recliner. No s/s of acute distress noted. Heparin 7.5ml/hr via left FA IV. Family at bedside. call light within reach.
--- NOTE | 2019-02-06 19:31 | NUR ---
Patient received sitting up in bed. AAO x 4. Family at bedside. Patient had no complaints of pain. No signs of respiratory distress. Fall precautions implemented. Patient instructed to call for assistance when needed. Call light within reach.
[2019-02-06] MEDS: ATORVASTATIN 40 MG TAB PO SCH (21:11)
[2019-02-06] MEDS: TRAZODONE HCL 50 MG TAB PO SCH (21:11)
[2019-02-07] VITALS (8 sets, daily range): BP systolic 124–153; BP diastolic 58–69
--- NOTE | 2019-02-07 00:09 | NUR ---
Dr. Gardner here to see patient . New order received for Miralax x 1 and Miralax BID PRN .
[2019-02-07] MEDS ORDERED: POLYETHYLENE GLYCOL 3350 17 GM PACK PO ONE (00:15)
--- NOTE | 2019-02-07 02:02 | NUR ---
PTT results recorded as 54. PTT within therapeutic limit. No rate change in Heparin administration.
[2019-02-07 05:23] LABS: BASOPHILS % 0.2 % (0.0-1.0); HEMATOCRIT 29.9 % (34.2-44.1); HEMOGLOBIN 9.4 g/dL (12.0-16.0); LYMPHOCYTES # (AUTO) 1.1 (1.0-3.2); LYMPHOCYTES % 16.9 % (18.0-39.1); MEAN CORPUSCULAR HEMOGLOBIN 29.7 pg (28-32); MEAN CORPUSCULAR HGB CONC 31.4 g/dL (31-35); MEAN CORPUSCULAR VOLUME 94.3 fL (81-99); MONOCYTES # (AUTO) 0.1 (0.2-0.8); NEUTROPHILS # (AUTO) 5.2 (2.1-6.9); NEUTROPHILS % 79.7 % (38.7-80.0); PLATELET COUNT 243 x10e3/uL (140-360); RED BLOOD COUNT 3.17 x10e6/uL (3.6-5.1); RED CELL DISTRIBUTION WIDTH 15.4 % (11.7-14.4)
[2019-02-07 05:40] LABS: INR 1.64
--- NOTE | 2019-02-07 07:00 | NUR ---
Shift report given to oncoming nurse.
[2019-02-07] MEDS: DOCUSATE SODIUM 100 MG CAP PO SCH (09:15)
[2019-02-07] MEDS: PANTOPRAZOLE 40 MG 10ML VIAL IV SCH ×2 (09:15→21:25)
[2019-02-07] MEDS: CLOPIDOGREL BISULFATE 75 MG TAB PO SCH (09:16)
[2019-02-07] MEDS: POLYETHYLENE GLYCOL 3350 17 GM PACK PO PRN (09:16)
[2019-02-07] MEDS: IRON-VITAMIN-MINERAL CAPSULE PO SCH ×2 (09:16→16:17)
[2019-02-07] MEDS: METOPROLOL TARTRATE 25 MG TAB PO SCH ×2 (09:16→16:17)
[2019-02-07] MEDS: FUROSEMIDE INJ 10 MG/ML 2 ML VIAL IV SCH (16:17)
[2019-02-07] MEDS: WARFARIN SOD 2 MG TAB PO SCH (16:18)
[2019-02-07] MEDS: WARFARIN SOD 5 MG TAB PO SCH (16:19)
--- NOTE | 2019-02-07 16:23 | Progress Note ---
DATE: 02/07/2019 Cardiology Progress Note SUBJECTIVE: The patient denies chest pain or shortness of breath. She remains on heparin drip. OBJECTIVE: VITAL SIGNS: Temperature 96.5 degrees, pulse 63, respiratory rate 19, blood pressure 133/67, and oxygen saturation 91% on room air. GENERAL: Awake, alert, in no acute distress. LUNGS: Clear to auscultation bilaterally. No wheezes or crackles. CARDIOVASCULAR: Normal rate. Regular rhythm. Mechanical S2. No murmur. ABDOMEN: Soft and nontender. EXTREMITIES: 1+ pitting edema bilaterally. CARDIAC MEDICATIONS: Heparin drip, Plavix 75 mg p.o. daily, metoprolol tartrate 25 mg p.o. b.i.d., atorvastatin 40 mg p.o. at bedtime, and warfarin 7 mg p.o. daily. LABORATORY DATA: WBC 6.55, hemoglobin 9.4, hematocrit 29.9, and platelets 243. Sodium 141, potassium 4, chloride 104, CO2 29, BUN 9, and creatinine 1.19. TELEMETRY: V-paced. IMPRESSION: 1. Acute gastrointestinal bleeding of unclear source, status post EGD and colonoscopy. 2. Mechanical aortic valve replacement. 3. Bioprosthetic mitral valve replacement. 4. Coronary artery disease, status post recent percutaneous coronary intervention. 5. Hypertension. 6. Hyperlipidemia. 7. Chronic kidney disease. RECOMMENDATIONS: Continue heparin bridge to therapeutic INR. Continue Plavix. Monitor for signs and symptoms of bleeding. Start IV Lasix to keep euvolemic, as the patient is on torsemide as an outpatient. Monitor volume status closely. Continue current cardiac medications otherwise. Thank you for this consult. We will continue to follow. Caridad Salas MD ABS/MODL /[id number]
[2019-02-07] MEDS ORDERED: FUROSEMIDE INJ 10 MG/ML 4 ML VIAL IV SCH (17:00)
--- NOTE | 2019-02-07 18:22 | NUR ---
Nutrition Screen Note RD Recommendation for Physician: -Continue cardiac diet Plan of Care: RD following, monitoring for tolerance and adequacy Nutrition reason for involvement: Length of stay Primary Diagnose(s): GI bleed PMH: aortic stenosis, carotid stenosis, afib, thyroid nodules, pulmonary nodules, HLD, renal insufficiency Ht: 67 in Wt:237 lb BMI: 37.2 kg/m2 IBW:[address] Assessment: (02/07/19) Chart reviewed. Labs and meds reviewed. Pt is a 73 year old female admitted with GI bleed. Pt currently has PO intake of 75-100% of meals. No wt loss reported and pt mentioned she usually weighs 233 lbs. No N/V noted and no chewing/swallowing issues. Pt was interested in diet education materials regarding vitamin K and medications due to warfarin, which was provided. Will continue to monitor Current Diet: Cardiac diet Malnutrition Evaluation (02/07/19) The patient does not meet criteria for a specified degree of malnutrition at this time. Will re-evaluate at follow-up as appropriate. Diet Education Needs Assessment: Pt requested information regarding vitamin K and medications due to warfarin. Handout was provided. Pt was not interested in verbal education at time of visit and stated she will read provided materials at a later time. Nutrition Care Level: low Signed: Hermelinda Diaz, RD, LD
--- NOTE | 2019-02-07 19:05 | NUR ---
Report given to oncoming nurse of patient's status. AAOX3 to time, person, place. Respirations even and unlabored. Heparin 7.5ml/hr via left FA IV. No signs of infiltration noted. call light within reach.
--- NOTE | 2019-02-07 19:30 | NUR ---
Patient received sitting in recliner chair. AAO x 4. No acute distress noted. Heparin infusing at 7.5 cc/hr. Safety measures in place. Call light within reach.
[2019-02-07] MEDS: TRAZODONE HCL 50 MG TAB PO SCH (21:25)
[2019-02-07] MEDS: ATORVASTATIN 40 MG TAB PO SCH (21:25)
[2019-02-08] VITALS (7 sets, daily range): BP systolic 108–131; BP diastolic 51–63
--- NOTE | 2019-02-08 01:20 | NUR ---
PTT results recorded as 62.4. No rate change in Heparin administration.
[2019-02-08 01:35] LABS: BASOPHILS # (AUTO) 0.1 (0.0-0.1); BASOPHILS % 0.5 % (0.0-1.0); EOSINOPHILS # (AUTO) 0.1 (0.0-0.4); EOSINOPHILS % 0.7 % (0.0-6.0); HEMATOCRIT 30.3 % (34.2-44.1); HEMOGLOBIN 9.7 g/dL (12.0-16.0); LYMPHOCYTES % 17.9 % (18.0-39.1); MEAN CORPUSCULAR HEMOGLOBIN 30.1 pg (28-32); MEAN CORPUSCULAR VOLUME 94.1 fL (81-99); MONOCYTES # (AUTO) 0.6 (0.2-0.8); MONOCYTES % 5.1 % (4.4-11.3); NEUTROPHILS # (AUTO) 8.2 (2.1-6.9); NEUTROPHILS % 75.3 % (38.7-80.0); PLATELET COUNT 252 x10e3/uL (140-360); RED BLOOD COUNT 3.22 x10e6/uL (3.6-5.1)
[2019-02-08 01:47] LABS: INR 1.86; PROTHROMBIN TIME 22.1 seconds (11.9-14.5)
[2019-02-08] MEDS: HEPARIN 25,000 UNIT 1,400 UNIT in DEXTROSE 5% 250ML 250 ML IV SCH (07:17)
[2019-02-08] MEDS: FUROSEMIDE INJ 10 MG/ML 2 ML VIAL IV SCH ×2 (10:29→18:38)
[2019-02-08] MEDS: CLOPIDOGREL BISULFATE 75 MG TAB PO SCH (10:29)
[2019-02-08] MEDS: IRON-VITAMIN-MINERAL CAPSULE PO SCH ×2 (10:29→18:38)
[2019-02-08] MEDS: PANTOPRAZOLE 40 MG 10ML VIAL IV SCH ×2 (10:29→21:53)
[2019-02-08] MEDS: DOCUSATE SODIUM 100 MG CAP PO SCH (10:29)
[2019-02-08] MEDS: METOPROLOL TARTRATE 25 MG TAB PO SCH ×2 (10:31→18:39)
--- NOTE | 2019-02-08 13:08 | NUR ---
PT DISCUSSED IN ROUNDS PT INR IS 1.89 NEEDS TO BE AT 2 TO DISCHARGE, CONTINUE CARE
[2019-02-08] MEDS: POLYETHYLENE GLYCOL 3350 17 GM PACK PO PRN (14:49)
--- NOTE | 2019-02-08 18:14 | Progress Note ---
DATE: 02/08/2019 Cardiology Progress Note SUBJECTIVE: The patient is feeling better. Denies any chest pain or shortness of breath. Reports mild fatigue. OBJECTIVE: VITAL SIGNS: Temperature is 97.3, heart rate is 73, respirations are 18, blood pressure is 120/56, oxygen saturation 94% on room air. GENERAL: Well appearing, in no apparent distress. CARDIOVASCULAR: Regular rate and rhythm. LUNGS: Clear to auscultation. ABDOMEN: Soft, nontender, nondistended. EXTREMITIES: No edema. CARDIOVASCULAR MEDICATIONS: Reviewed. LABORATORY DATA: Reviewed. Hemoglobin 9.7, INR is 1.86. IMPRESSION: 1. Acute gastrointestinal bleed. 2. Mechanical aortic valve replacement. 3. Bioprosthetic mitral valve replacement. 4. Coronary artery disease. 5. Hypertension. 6. Hyperlipidemia. 7. Chronic kidney disease. RECOMMENDATIONS: Continue heparin and warfarin to ensure therapeutic INR. Will need to be discharged on p.o. Lasix. Continue all other current cardiovascular medications. There is no evidence of bleeding at this point in time. Celio Song DO BM/MODL /[id number] ALINE
[2019-02-08] MEDS: WARFARIN SOD 2 MG TAB PO SCH (18:38)
[2019-02-08] MEDS: WARFARIN SOD 5 MG TAB PO SCH (18:38)
[2019-02-08] MEDS: TRAZODONE HCL 50 MG TAB PO SCH (21:53)
[2019-02-08] MEDS: ATORVASTATIN 40 MG TAB PO SCH (21:53)
[2019-02-09] VITALS (8 sets, daily range): BP systolic 111–125; BP diastolic 53–64
--- NOTE | 2019-02-09 01:40 | NUR ---
PTT results recorded as 119.3. Heparin infusion held for 30 minutes and rate decreased by 150 units. Heparin infusion re-started at 6.0 cc/hr.
[2019-02-09 02:23] LABS: BASOPHILS # (AUTO) 0.1 (0.0-0.1); BASOPHILS % 0.6 % (0.0-1.0); EOSINOPHILS # (AUTO) 0.4 (0.0-0.4); EOSINOPHILS % 4.9 % (0.0-6.0); HEMATOCRIT 31.5 % (34.2-44.1); HEMOGLOBIN 9.9 g/dL (12.0-16.0); LYMPHOCYTES # (AUTO) 2.9 (1.0-3.2); LYMPHOCYTES % 34.2 % (18.0-39.1); MEAN CORPUSCULAR HEMOGLOBIN 29.9 pg (28-32); MEAN CORPUSCULAR HGB CONC 31.4 g/dL (31-35); MEAN CORPUSCULAR VOLUME 95.2 fL (81-99); MONOCYTES # (AUTO) 0.7 (0.2-0.8); MONOCYTES % 7.7 % (4.4-11.3); NEUTROPHILS # (AUTO) 4.4 (2.1-6.9); NEUTROPHILS % 51.5 % (38.7-80.0); PLATELET COUNT 247 x10e3/uL (140-360); RED BLOOD COUNT 3.31 x10e6/uL (3.6-5.1); RED CELL DISTRIBUTION WIDTH 16.5 % (11.7-14.4)
[2019-02-09 03:07] LABS: INR 2.19
[2019-02-09] MEDS: HEPARIN 25,000 UNIT 25,000 UNIT in DEXTROSE 5% 250ML 250 ML IV SCH (04:00)
--- NOTE | 2019-02-09 07:00 | NUR ---
BEDSIDE SHIFT REPORT RECEIVED FROM THE ANIMAL NUTRITIONIST RN. EDUCATED PT ABOUT FALL PRECAUTIONS. CALL LIGHT WITH IN EASY REACH. INSTRUCTED PT TO USE CALL LIGHT FOR ALL THE NEEDS. PT VERBALIZED UNDERSTANDING. BED IS LOW AND LOCKED. SIDE RAILS X2. PT DENIES NEEDS AT THIS TIME.
--- NOTE | 2019-02-09 07:00 | NUR ---
Shift report given to oncoming nurse of patient's status.
[2019-02-09] MEDS: PANTOPRAZOLE 40 MG 10ML VIAL IV SCH ×2 (08:09→20:47)
[2019-02-09] MEDS: CLOPIDOGREL BISULFATE 75 MG TAB PO SCH (08:11)
[2019-02-09] MEDS: DOCUSATE SODIUM 100 MG CAP PO SCH (08:11)
[2019-02-09] MEDS: IRON-VITAMIN-MINERAL CAPSULE PO SCH ×2 (08:11→17:52)
[2019-02-09] MEDS: METOPROLOL TARTRATE 25 MG TAB PO SCH ×2 (08:12→17:52)
[2019-02-09] MEDS: FUROSEMIDE INJ 10 MG/ML 2 ML VIAL IV SCH (08:15)
--- NOTE | 2019-02-09 09:00 | NUR ---
PAGED DR. MATHEW OFFICE PER DR. MARTINI REGARDING PT LAB VALUES, APTT AND D/C PLAN. LEFT MESSAGE. WAITING FOR THE CALL BACK.
--- NOTE | 2019-02-09 09:17 | NUR ---
PT DISCHARGED HOME TODAY IMM EXPLAINED TO PT, SIGNED BY PT AND PLACED IN CHART COPY TO PT IN CARE TRANSITIONS FOLDER
--- NOTE | 2019-02-09 11:00 | NUR ---
DR. PERRY AT BEDSIDE. INFORMED PT PTT AND INR VALUES TO THE DREvan KEEP THE HEPARIN DRIP AT CURRENT RATE PER THE DR. D/C IV LASIX AND START TORSEMIDE HOME MED. NEW ORDER FOR CHECK INR AND PTT AT 1400. NO D/C YET PER THE
--- NOTE | 2019-02-09 13:40 | Progress Note ---
DATE: 02/09/2019 Cardiology Progress Note SUBJECTIVE: The patient denies chest pain or shortness of breath. OBJECTIVE: VITAL SIGNS: Temperature 98 degrees, pulse 75, respiratory rate 19, blood pressure 125/60, oxygen saturation 96% on room air. GENERAL: Awake, alert, in no acute distress. LUNGS: Clear to auscultation bilaterally. No wheeze or crackles. CARDIOVASCULAR: Normal rate, regular rhythm, mechanical S2. ABDOMEN: Soft, nontender. EXTREMITIES: Trace edema. CARDIAC MEDICATIONS: Metoprolol tartrate 25 mg p.o. b.i.d., Plavix 75 mg p.o. daily, atorvastatin 40 mg p.o. at bedtime, warfarin 7 mg p.o. daily, atorvastatin 20 mg p.o. daily. LABORATORY DATA: WBC 8.43, hemoglobin 9.9, hematocrit 31.5, platelets 247. INR 2.19. TELEMETRY: V-paced. IMPRESSION: 1. Acute gastrointestinal bleeding of unclear source, status post esophagogastroduodenoscopy and colonoscopy. 2. Mechanical aortic valve replacement. 3. Bioprosthetic mitral valve replacement. 4. Coronary artery disease, status post percutaneous coronary intervention. 5. Paroxysmal atrial fibrillation. 6. Hypertension. 7. Hyperlipidemia. 8. Chronic kidney disease. RECOMMENDATIONS: Continue heparin bridge to therapeutic INR given her mechanical aortic valve and paroxysmal atrial fibrillation. Her INR target is 2.5 to 3.5. We will aim for an INR of 2.5 given her recent bleeding. Continue current cardiac medications otherwise. Monitor volume status closely. Change to p.o. torsemide. Hopeful, patient can discharge home later today or in the morning once INR rises further. Thank you for this consult. We will continue to follow. Caridad Salas MD ABS/MODL /[id number]
[2019-02-09] MEDS ORDERED: ONDANSETRON HCL 4 MG ORAL DISINTEGRATING TAB PO PRN (14:00)
--- NOTE | 2019-02-09 14:15 | Consultation ---
DATE OF CONSULTATION: 02/06/[address] Mark Dumont. Usha Mims is a 73-year-old white female, referred to me for evaluation of GI bleed. The patient has been on Coumadin, Plavix, and aspirin. The patient subsequently was referred to me for evaluation of the GI bleed. HISTORY OF PAST ILLNESS: History of PTCA stenting a week back, history of aortic stenosis, valvular surgery in 2017, history of pacemaker, history of bilateral endarterectomy, history of atrial fibrillation, history of thyroid nodules per history, being followed by Dr. Moyer, history of pulmonary nodules per history, followed by Dr. Diego Sanchez, and history of mitral valve replacement. SOCIAL HISTORY: Noncontributory. FAMILY HISTORY: Noncontributory. ALLERGIES: REPORTED NONE. MEDICATIONS: At this time: 1. Dextrose. 2. Ondansetron. 3. Trazodone. 4. Protonix. 5. Metoprolol. 6. Promethazine. 7. Atorvastatin. 8. Docusate. 9. Coumadin. REVIEW OF SYSTEMS: HEENT: Normal. CARDIAC: History of mitral valve replacement, history of aortic valve replacement, history of atrial fibrillation, and history of pacemaker insertion. RESPIRATORY: Normal. GI: Melanotic stool. : Normal. MUSCULOSKELETAL: Normal. SKIN: Normal. BREASTS: Normal. NEUROENDOCRINE: History of thyroid nodules, being followed by Dr. Moyer and history of pulmonary nodules, being followed by Dr. Sanchez. PHYSICAL EXAMINATION: GENERAL: A rather obese female, anemic. NECK: No palpable adenopathy. HEART: Within normal limits. LUNGS: Clear. ABDOMEN: Soft. RECTAL AND VAGINAL: Deferred. CENTRAL NERVOUS SYSTEM: Essentially normal. LABORATORY DATA: Lab on 01/30, showed a hemoglobin of 11.8, white count of 8800, and platelets of 290,000, however on the day the patient has been consulted had shown a drop in the hemoglobin to 8.4. INR of 1.4. IMPRESSION: 1. Anemia of blood loss. 2. Status post PTCA stenting a week back. 3. On Coumadin, Plavix, and aspirin. 4. Melena. 5. Aortic stenosis, valvular surgery in 2017. 6. History of pacemaker insertion. 7. Bilateral endarterectomy. 8. Atrial fibrillation. 9. Thyroid nodule, being followed by Dr. Moyer. 10. Multiple pulmonary nodules as per history, followed by Dr. Sanchez. 11. Chronic renal failure. 12. Gastrointestinal bleed. 13. Hypoproteinemia of 6.2. 14. Hypoalbuminemia of 3.2. 15. Diverticulosis coli. 16. Sigmoid polyp. PLAN: Plan is to continue the Coumadin, Plavix, and aspirin by Cardiology, as she will have a stroke. I will confine myself to Hematology. The patient has a hemoglobin of 9.9, white count of 8430 today, and platelets of 247,000. The INR is up to 2.19. The patient is being discharged by Dr. Dumont. Dr. Dumont, Dr. Moyer, and Dr. Diego Sanchez will follow this patient. I will be more than happy to follow the patient for anything if the attending would call and make an appointment with me. MD CARINE uH/MODL /[id number] cc: MD Sunny Mcnulty MD Maurice S Haddad, MD Lawrence R Clarke, MD David Stein, MD
--- NOTE | 2019-02-09 15:20 | NUR ---
PAGEJesus PERRY AND REPORTED THE INR VALUES. NEW ORDER FOR COUMADIN 7.5 MG AT 1700 RECEIVED.
[2019-02-09 15:23] LABS: INR 1.96
[2019-02-09 15:25] LABS: PARTIAL THROMBOPLASTIN TIME 99.1 seconds (23.8-35.5)
[2019-02-09] MEDS ORDERED: WARFARIN SOD 5 MG TAB PO SCH (17:00)
[2019-02-09] MEDS: WARFARIN SOD 2.5 MG TAB PO SCH (17:52)
--- NOTE | 2019-02-09 19:00 | NUR ---
BEDSIDE SHIFT REPORT GIVEN TO THE CAMPAIGN COORDINATOR RN. PT DENIED FURTHER NEEDS.
--- NOTE | 2019-02-09 19:32 | NUR ---
Patient received sitting in recliner chair. AAO x 4. No complaints of pain. Heparin infusing at 4.0 cc/hr. Safety measures in place. Call light within reach.
[2019-02-09] MEDS: TRAZODONE HCL 50 MG TAB PO SCH (20:48)
[2019-02-09] MEDS: ATORVASTATIN 40 MG TAB PO SCH (20:48)
--- NOTE | 2019-02-09 21:30 | NUR ---
PTT results recorded as 65.0. No rate change required. PTT will be drawn at 0430. Heparin currently infusing at 4.0 cc/hr.
[2019-02-10] VITALS (9 sets, daily range): BP systolic 104–145; BP diastolic 49–78
[2019-02-10] MEDS: HEPARIN 25,000 UNIT 25,000 UNIT in DEXTROSE 5% 250ML 250 ML IV SCH (04:00)
--- NOTE | 2019-02-10 06:09 | NUR ---
PTT results recorded as 54.6. No rate change in Heparin infusion. Next PTT drawn will be 0500 on 02/11/19. PTT currently infusing at 4 cc /hr.
[2019-02-10 06:15] LABS: INR 1.92; PROTHROMBIN TIME 22.6 seconds (11.9-14.5)
--- NOTE | 2019-02-10 07:00 | NUR ---
BEDSIDE SHIFT REPORT RECEIVED FROM THE RACE ENGINE BUILDER RN. EDUCATED PT ABOUT FALL PRECAUTIONS. CALL LIGHT WITH IN EASY REACH. INSTRUCTED PT TO USE CALL LIGHT FOR ALL THE NEEDS. PT VERBALIZED UNDERSTANDING. BED IS LOW AND LOCKED. SIDE RAILS X2. PT DENIES NEEDS AT THIS TIME.
[2019-02-10] MEDS: DOCUSATE SODIUM 100 MG CAP PO SCH (09:07)
[2019-02-10] MEDS: TORSEMIDE 10 MG TAB PO SCH (09:08)
[2019-02-10] MEDS: CLOPIDOGREL BISULFATE 75 MG TAB PO SCH (09:08)
[2019-02-10] MEDS: IRON-VITAMIN-MINERAL CAPSULE PO SCH ×2 (09:08→18:00)
[2019-02-10] MEDS: METOPROLOL TARTRATE 25 MG TAB PO SCH ×2 (09:09→18:00)
[2019-02-10] MEDS: POLYETHYLENE GLYCOL 3350 17 GM PACK PO PRN (09:14)
[2019-02-10] MEDS: PANTOPRAZOLE 40 MG 10ML VIAL IV SCH ×2 (09:14→21:25)
[2019-02-10] MEDS ORDERED: WARFARIN SOD 2 MG TAB PO ONE (09:45)
--- NOTE | 2019-02-10 16:30 | NUR ---
PAGED LAB REGARDING INR & CBC ORDER.
[2019-02-10 17:01] LABS: BASOPHILS % 0.5 % (0.0-1.0); EOSINOPHILS # (AUTO) 0.3 (0.0-0.4); HEMATOCRIT 33.1 % (34.2-44.1); HEMOGLOBIN 10.3 g/dL (12.0-16.0); LYMPHOCYTES % 24.1 % (18.0-39.1); MEAN CORPUSCULAR HEMOGLOBIN 29.8 pg (28-32); MEAN CORPUSCULAR HGB CONC 31.1 g/dL (31-35); MEAN CORPUSCULAR VOLUME 95.7 fL (81-99); MONOCYTES # (AUTO) 0.6 (0.2-0.8); MONOCYTES % 7.5 % (4.4-11.3); NEUTROPHILS # (AUTO) 5.4 (2.1-6.9); NEUTROPHILS % 64.1 % (38.7-80.0); PLATELET COUNT 265 x10e3/uL (140-360); RED BLOOD COUNT 3.46 x10e6/uL (3.6-5.1); RED CELL DISTRIBUTION WIDTH 16.2 % (11.7-14.4)
[2019-02-10 17:12] LABS: INR 2.06; PROTHROMBIN TIME 23.9 seconds (11.9-14.5)
--- NOTE | 2019-02-10 17:30 | NUR ---
PAGED DR. MARTINI AND DR. PERRY REGARDING INR VALUES.
[2019-02-10] MEDS: WARFARIN SOD 2.5 MG TAB PO SCH (18:00)
--- NOTE | 2019-02-10 18:00 | NUR ---
D/C PT TOMORROW IF INR VALUE 2.[address] PERRY.
--- NOTE | 2019-02-10 18:53 | Progress Note ---
DATE: 02/10/2019 Cardiology Progress Note SUBJECTIVE: The patient denies chest pain or shortness of breath. She suspects she may have more GI bleeding after stools start today. OBJECTIVE: VITAL SIGNS: Temperature 96.9 degrees, pulse 73, respiratory rate 16, blood pressure 112/67, and oxygen saturation 94% on room air. GENERAL: Awake, alert, in no acute distress. LUNGS: Clear to auscultation bilaterally. No wheeze or crackles. HEART: Normal rate. Regular rhythm. Mechanical S2. ABDOMEN: Soft and nontender. EXTREMITIES: Trace edema. CARDIAC MEDICATIONS: Warfarin 7.5 mg p.o. daily, metoprolol tartrate 25 mg p.o. b.i.d., torsemide 20 mg p.o. daily, Plavix 75 mg p.o. daily, and atorvastatin 40 mg p.o. at bedtime. LABORATORY DATA: WBC 8.45, hemoglobin 10.3, hematocrit 33.1, and platelets 265. INR 2.06. TELEMETRY: V-paced. IMPRESSION: 1. Acute gastrointestinal bleeding of unclear source, status post EGD and colonoscopy. 2. Mechanical aortic valve replacement. 3. Bioprosthetic mitral valve replacement, coronary artery disease, status post PCI. 4. Paroxysmal atrial fibrillation. 5. Hypertension. 6. Hyperlipidemia. 7. Chronic kidney disease. RECOMMENDATIONS: Continue heparin bridge to therapeutic INR. Given her mechanical valve and paroxysmal atrial fibrillation, her INR target is 2.5 to 3.5. We will aim for INR of 2.5 given her recent bleeding. Continue current cardiac medications. Monitor volume status closely. Plan to discharge home once her INR rises further. Thank you for this consult. We will continue to follow. Caridad Salas MD ABS/MODL /[id number]
--- NOTE | 2019-02-10 19:00 | NUR ---
BEDSIDE SHIFT REPORT GIVEN TO THE CHIEF OPERATOR RN. PT DENIED FURTHER NEEDS.
[2019-02-10] MEDS: ATORVASTATIN 40 MG TAB PO SCH (21:25)
[2019-02-10] MEDS: TRAZODONE HCL 50 MG TAB PO SCH (21:25)
--- NOTE | 2019-02-10 21:28 | NUR ---
Patient received sitting in bed. AAO x 4. No signs of pain or respiratory distress. Heparin infusing at 4cc/hr. Fall precautions implemented. Patient instructed to call for assistance when needed. Call light within reach.
[2019-02-11] VITALS: BP 120/56
[2019-02-11 04:00] VITALS: BP 117/57
[2019-02-11] MEDS: HEPARIN 25,000 UNIT 25,000 UNIT in DEXTROSE 5% 250ML 250 ML IV SCH (04:00)
[2019-02-11 05:29] LABS: INR 2.43; PROTHROMBIN TIME 27.1 seconds (11.9-14.5)
--- NOTE | 2019-02-11 05:49 | NUR ---
PTT results recorded as 64.9. No rate change in Heparin infusion. Next PTT drawn will be 0500 on 02/12/19. PTT currently infusing at 4 cc /hr.
--- NOTE | 2019-02-11 07:00 | NUR ---
BEDSIDE SHIFT REPORT RECEIVED FROM THE STATE TESTED NURSING ASSISTANT RN. EDUCATED PT ABOUT FALL PRECAUTIONS. CALL LIGHT WITH IN EASY REACH. INSTRUCTED PT TO USE CALL LIGHT FOR ALL THE NEEDS. PT VERBALIZED UNDERSTANDING. BED IS LOW AND LOCKED. SIDE RAILS X2. PT DENIES NEEDS AT THIS TIME.
[2019-02-11 08:00] VITALS: BP 130/61
[2019-02-11] MEDS: IRON-VITAMIN-MINERAL CAPSULE PO SCH (08:00)
[2019-02-11] MEDS: TORSEMIDE 10 MG TAB PO SCH (08:00)
--- NOTE | 2019-02-11 08:00 | NUR ---
DR. MARTINI AT BEDSIDE. D/C PT PER DR. MARTINI.
[2019-02-11] MEDS: CLOPIDOGREL BISULFATE 75 MG TAB PO SCH (08:01)
[2019-02-11] MEDS: DOCUSATE SODIUM 100 MG CAP PO SCH (08:01)
[2019-02-11] MEDS: PANTOPRAZOLE 40 MG 10ML VIAL IV SCH ×2 (08:01→08:03)
[2019-02-11] MEDS: METOPROLOL TARTRATE 25 MG TAB PO SCH (08:01)
--- NOTE | 2019-02-11 08:30 | NUR ---
PAGED DR. PERRY REGARDING INR VALUES AND D/C ORDER
[2019-02-11 08:58] VITALS: BP 130/61
[2019-02-11] MEDS ORDERED: WARFARIN SODIUM3 MG PO (09:31)
[2019-02-11] MEDS ORDERED: HEMOCYTE PLUS1 EACH (09:37)
[2019-02-11] MEDS ORDERED: PANTOPRAZOLE SO40 MG PO (09:38)
--- NOTE | 2019-02-11 10:00 | NUR ---
PT DISCHARGED HOME SAFELY WITH DAUGHTER. PT ESCORTED VIA WHEEL CHAIR TO THE PRIVATE AUTO AT THE FRONT ENTRANCE. LAC AND LEFT FORE HAND IV'S REMOVED. TIP INTACT. DRESSING APPLIED. RX GIVEN. PT DENIED FURTHER NEEDS.
== END 2019-02-11 10:30 | disposition home or self-care (01) | DRG 378 ==
LOC: ER 09:50 → ERHOLD 14:42 → MED/SURG2 16:15 → OBSVTOIN 02-01 09:56
PROVIDERS: ADMIT Internal Medicine; ATTEND Internal Medicine
PROC: 0DB78ZX Excision of Stomach, Pylorus, Via Natural or Artificial Opening Endoscopic, Diagnostic (ICD-10-PCS; 2019-01-31)
PROC: 0DBN8ZX Excision of Sigmoid Colon, Via Natural or Artificial Opening Endoscopic, Diagnostic (ICD-10-PCS; principal; 2019-02-02 15:50)
DX: K57.31 Diverticulosis of large intestine without perforation or abscess with bleeding (principal); D62 Acute posthemorrhagic anemia; N17.9 Acute kidney failure, unspecified; E78.5 Hyperlipidemia, unspecified; I25.10 Atherosclerotic heart disease of native coronary artery without angina pectoris; Z95.5 Presence of coronary angioplasty implant and graft; Z79.01 Long term (current) use of anticoagulants; Z95.2 Presence of prosthetic heart valve; K29.70 Gastritis, unspecified, without bleeding; I12.9 Hypertensive chronic kidney disease with stage 1 through stage 4 chronic kidney disease, or unspecified chronic kidney disease; N18.9 Chronic kidney disease, unspecified
CPT/HCPCS: 36415; 43239; 45378; 45384; 74177; 78278; 80048; 80053; 81001; 82270; 82550; 82553; 82728; 83540; 84443; 84466; 84484; 85025; 85045; 85610; 85730; 86850; 86900; 88305; 88312; 88342; 93005; 99284; A9512; G0378; J1100; J1200; J1750; J1940; J2001; J2353; J2405; J2550; J7030; J7040; J7050; J7121; Q9967